=== PATIENT | male | born 1955 | race Caucasian/White ===

== ENCOUNTER 2019-07-17 15:10 | Inpatient (IN) | payer MEDICARE, OTHER ==
[~2019-07-17] VITALS: Ht 177.8 cm; Wt 68.0 kg
[2019-07-17 18:56] LABS: BASOPHILS % 0.1 % (0.0-1.0); HEMATOCRIT 41.1 % (38.2-49.6); HEMOGLOBIN 12.8 g/dL (14.0-18.0); LYMPHOCYTES % 4.5 % (18.0-39.1); MEAN CORPUSCULAR HEMOGLOBIN 27.5 pg (28-32); MEAN CORPUSCULAR HGB CONC 31.1 g/dL (31-35); MEAN CORPUSCULAR VOLUME 88.2 fL (81-99); MONOCYTES % 4.9 % (4.4-11.3); NEUTROPHILS % 89.7 % (38.7-80.0); PLATELET COUNT 350 x10e3/uL (140-360); RED BLOOD COUNT 4.66 x10e6/uL (4.3-5.7); RED CELL DISTRIBUTION WIDTH 15.2 % (11.7-14.4)
[2019-07-17 18:57] LABS: BILIRUBIN,URINE NEGATIVE (NEGATIVE); CLARITY,URINE SL CLOUDY (CLEAR); COLOR,URINE YELLOW (YELLOW); KETONES,URINE NEGATIVE (NEGATIVE); LEUKOCYTE ESTERASE ,URINE LARGE (NEGATIVE); NITRITE,URINE NEGATIVE (NEGATIVE); PROTEIN,URINE DIPSTICK TRACE (NEGATIVE); URINE UROBILINOGEN 1 mg/dL (0.2 - 1)
[2019-07-17 19:11] LABS: BACTERIA,URINE MANY /HPF; EPITHELIAL CELLS,URINE MODERATE /LPF
[2019-07-17 19:12] LABS: ALANINE AMINOTRANSFERASE 36 IU/L (0-55); ALBUMIN/GLOBULIN RATIO 0.7 (0.8-2.0); ALKALINE PHOSPHATASE 463 IU/L (40-150); ANION GAP 19.9 mmol/L (8-16); BLOOD UREA NITROGEN 19 mg/dL (7-26); BUN/CREATININE RATIO 20 (6-25); CALCIUM 10.7 mg/dL (8.4-10.2); CARBON DIOXIDE 31 mmol/L (22-29); CHLORIDE 88 mmol/L (98-107); CREATININE, SERUM 0.95 mg/dL (0.72-1.25); EST GLOMERULAR FILTRATION RATE > 60 ML/MIN (60-); GLUCOSE 91 mg/dL (74-118); POTASSIUM 3.9 mmol/L (3.5-5.1); SODIUM 135 mmol/L (136-145)
[2019-07-17] MEDS ORDERED: CEFTRIAXONE SOD 1 GM/NS 50 ML 50 ML IV ONE (19:30)
[2019-07-17] MEDS ORDERED: ONDANSETRON HCL INJ 2MG/ML 2ML 2 MG/ML VIAL IV PRN (19:45)
--- OUTSIDE RECORDS SUMMARY | 2019-07-17 19:52 | XMS REPORT | Encounter Summary ---
Author Organization Unknown Address [address] [place] [id number] Phone [phone] Care Team Providers Care Medical Lab Director Name Role Phone Dr. Cirilo Pickering 3 [phone] Reason for Visit Transient cerebral ischemia; Coronary artery bypass grafts x 3; Percutaneous transluminal coronary angioplasty Instructions 1. Body mass index 25-29 - overweight learning about healthy weight 2. Screening for disorder 3. Benign prostatic hypertrophy with outflow obstruction urology referral tamsulosin 0.4 mg capsule 4. Pain in lower limb US, duplex, venous, lower extremity - STAT Not taking eliquis x 2 weeks + , chf , [place] lower extremity edema 5. Hypertensive heart disease with congestive heart failure Lasix 40 mg tablet potassium chloride ER 10 mEq tablet,extended release 6. Coronary arteriosclerosis in [place] artery 7. Severe chronic obstructive pulmonary disease Discussion Note f/u in 1 week Plan of Care Reminders Provider Appointments Est Patient 03/15/2019 10:30AM Cirilo Pickering MD Lab None recorded. Referral Urology Referral 03/08/2019 Vasile Dao MD Procedures None recorded. Surgeries None recorded. Imaging US, Duplex, Venous, Lower Extremity 03/08/2019 [facility] Medications Name Start Date aspirin 81 mg po bi weekly furosemide 20 mg tablet Take 1 tablet every day by oral route in the morning for 10 days. Klor-Con 8 mEq tablet,extended release Take 1 tablet every 72 hours by oral route. Lasix 40 mg tablet Take 1 tablet every day by oral route in the morning for 30 days. potassium chloride ER 10 mEq tablet,extended release Take 1 tablet every day by oral route for 30 days. tamsulosin 0.4 mg capsule Take 1 capsule every day by oral route for 90 days. Trelegy Ellipta 100 mcg-62.5 mcg-25 mcg powder for inhalation Inhale 1 puff every day by inhalation route for 90 days. Ventolin HFA 90 mcg/actuation aerosol inhaler Inhale 2 puffs 4 times a day by inhalation route as needed for 90 days. Xarelto 20 mg tablet Take 1 tablet every day by oral route. Medications Administered None recorded. Vitals Height Weight BMI Blood Pressure 5 ft 11 in 190.2 lbs 26.5 kg/m2 122/76 mm[Hg] Lab Results Date Name Specimen Result Interpretation Description Value Range Status Address 03/02/2019 Spirometry Testing Spirometry: PRE [facility] ([facility]) [place]: [address] [place] [address] Fev1: [facility] ([facility]) [place]: [address] [place] [address] Fvc: [facility] ([facility]) [place]: [address] [place] [address] Restriction: [facility] ([facility]) [place]: [address] [place] [address] Obstruction: VERY SEVERE (FEV1 <30% of predicted or <50 with Cor Pulmonale) [facility] ([facility]) [place]: [address] [place] [address] Notes: [facility] ([facility]) [place]: [address] [place] [address] 03/01/2019 CBC W/ Auto Diff High Wbc 9.65 x10*3/L 4.23-9.07 x10*3/L Final [facility]: [address] Rbc 4.81 10*12/L 4.63-6.08 10*12/L Final [facility]: [address] [place] [address] Hemoglobin 13.80 g/dL 13.70-17.50 g/dL Final [facility]: [address] [place] [address] Hematocrit 42.8 % 40.1-51.0 % Final [facility]: [address] [place] [address] Mcv 89.0 fL 80.0-100.0 fL Final [facility]: [address] [place] [address] Mch 28.7 pg 25.7-32.2 pg Final [facility]: [address] [place] [address] Low Mchc 32.2 g/dL 32.3-36.5 g/dL Final [facility]: [address] [place] [address] High RDW-SD 44.3 fL 35.1-43.9 fL Final [facility]: [address] [place] [address] [place] Platelet Count 222.0 k/uL 163.0-337.0 k/uL Final [facility]: [address] [place] [address] [place] Mpv 10.6 fL 7.5-11.5 fL Final [facility]: [address] [place] [address] [place] High Neut% 77.2 % 34.0-67.9 % Final [facility]: [address] [place] [address] [place] Low Lymph% 11.7 % 21.8-53.1 % Final [facility]: [address] [place] [address] [place] Mon% 8.4 % 5.3-12.2 % Final [facility]: [address] [place] [address] [place] Eos% 2.4 % 0.8-7.0 % Final [facility]: [address] [place] [address] [place] Baso% 0.3 % 0.2-1.2 % Final [facility]: [address] [place] [address] [place] High Neut# 7.5 x10*3/L 1.8-5.4 x10*3/L Final [facility]: [address] [place] [address] [place] Low Lymph# 1.1 x10*3/L 1.3-3.6 x10*3/L Final [facility]: [address] [place] [address] [place] Mon# 0.8 x10*3/L 0.3-0.8 x10*3/L Final [facility]: [address] [place] [address] [place] Eos# 0.23 x10*3/L 0.04-0.54 x10*3/L Final [facility]: [address] [place] [address] [place] Baso# 0.03 x10*3/L 0.01-0.08 x10*3/L Final [facility]: [address] [place] [address] [place] 03/01/2019 CMP, Serum or Plasma Alt 13 U/L 0-55 U/L Final [facility]: [address] [facility] Ast 15 U/L 5-34 U/L Final [facility] [address] [facility] Bun 12.1 mg/dL 8.4-25.0 mg/dL Final [facility]: [address] [place] [address], [place] Alk Phos 144 unit/L 40-150 unit/L Final [facility]: [address] [place] [address], [place] Glucose 92 mg/dL 70-99 mg/dL Final [facility]: [address] [place] [address] [place], [place] Albumin 3.9 g/dL 3.4-5.1 g/dL Final [facility]: [address] [place] [address], [place] Creatinine 1.03 mg/dL 0.72-1.25 mg/dL Final [facility]: [address] [facility] eGFR Non- >60 mL/min/1.73m2 Final [facility]: [address] [facility] High Total Bilirubin 1.3 mg/dL 0.2-1.2 mg/dL Final [facility]: [address] [place] [address] eGFR - >60 mL/min/1.73m2 Final [facility]: [address] [facility] Low Sodium 134 mEq/L 135-145 mEq/L Final [facility]: [address] [place] [address] Potassium 4.5 mEq/L 3.5-5.1 mEq/L Final [facility]: [address] [facility] Low Chloride 97 mmol/L 98-110 mmol/L Final [facility]: [address] [facility] Total Protein 6.7 g/dL 6.1-8.2 g/dL Final [facility]: [address] [facility] Calcium 10.0 mg/dL 9.0-10.2 mg/dL Final [facility]: [address] [place] [address] [facility] Co2 25.2 mmol/L 20.0-32.0 mmol/L Final [facility]: [address] [facility] Anion Gap 12 calc Final [facility]: [address] [facility] 03/01/2019 Lipid Panel, Serum Low Hdl 35 mg/dL 40-0 mg/dL Final [facility]: [address] [place] [address] Triglyceride 99 mg/dL 0-150 mg/dL Final [facility]: [address] [place] [address] VLDL (Calculated) 20 mg/dL Final [facility]: [address] [place] [address] cholesterol/HDL Ratio 3.8 mg/dL Final [facility]: [address] [place] [address] non-HDL Cholesterol (Calculated) 98 mg/dL 0-160 mg/dL Final [facility]: [address] Cholesterol 133 mg/dL 0-200 mg/dL Final [facility]: [address] LDL (Calculated) 78 mg/dL 0-130 mg/dL Final [facility]: [address] [place] [address], [place] 03/01/2019 TSH, Serum or Plasma Tsh 0.815 uIU/mL 0.350-4.940 uIU/mL Final [facility]: [facility] [place] [address] 03/01/2019 HbA1C (Hemoglobin a1C), Blood High A1C W/eag 6.1 % 1.0-5.7 % Final [facility]: [address] Average Blood Glucose 128 mg/dL Final [facility]: [address] [place] [address], [place] 03/01/2019 Urinalysis, Dipstick Color Color dark yellow [facility] ([facility]) [place]: [address] [place] Color Appearance clear [facility] ([facility]) [place]: [address] [place] Color Glucose negative [facility] (p) [place]: [address] [place] Color Bilirubin negative [facility] (p) [place]: [address] [place] Color Ketones negative [facility] (p) [place]: [address] [place] Color Specific [place] 1.020 [facility] (p) [place]: [address] [place] Color Blood negative [facility] (p) [place]: [address] [place] Color PH 5.5 [facility] ([facility]) [place]: [address] [place] Color Protein negative [facility] ([facility]) [place]: [address] [facility], [place] Color Urobilinogen 0.2 [facility] ([facility]) [place]: [address] [place] Color Nitrites negative [facility] ([facility]) [place]: [address] [place] Color Leukocytes negative [facility] ([facility]) [place]: [address] [facility] Allergies Code Code System Name Reaction Severity Status Onset 2582 RxNorm Clindamycin Rash Active Problems Name Status Onset Date Source Transient Cerebral Ischemia Active 03/01/2019 Coronary Artery Bypass Grafts X 3 Active 03/01/2019 Percutaneous Transluminal Coronary Angioplasty Active 03/01/2019 Procedures Date Name Performed by 09/20/2009 Cardiac Surgery Information not available 09/20/1994 Angioplasty Information not available Tonsillectomy Information not available 03/01/2019 XR, Chest, 2 View [facility] [place] [address] [place], [place] [id number] (Work Place) 03/08/2019 US, Duplex, Venous, Lower Extremity [facility] [place] [address] [place], [place] [id number] (Work Place) Vaccine List Vaccine Type pneumococcal polysaccharide PPV23 03/01/20190.5 mL Td(adult) unspecified formulation 09/20/1999 Tdap 03/01/20190.5 mL Social History Smoking Status Heavy Tobacco Smoker (1 PPD) Past Encounters 03/08/2019 Body Mass Index 25-29 - Overweight; Screening for Disorder; Benign Prostatic Hypertrophy with Outflow Obstruction; Pain in Lower Limb; Hypertensive Heart Disease with Congestive Heart Failure; Coronary Arteriosclerosis in [place] Artery; Severe Chronic Obstructive Pulmonary Disease Cirilo Pickering MD: [address] [place] [address], [place] [address], Ph. 03/01/2019 Body Mass Index 25-29 - Overweight; Depression Screening Positive; Nicotine Dependence; Coronary Arteriosclerosis in [place] Artery; Severe Chronic Obstructive Pulmonary Disease; Senile Purpura; Edema of Lower Extremity; Adult Health Examination; Immunization; Noncompliance with Treatment; Screening for Malignant Neoplasm of Colon Cirilo Pickering MD: [address] [place] [address], Ph. History of Present Illness Note:C/o pain in Lt thigh x 2 week , no h/o trauma , Takes xarelto ?? 2 weeks ago . pain when he toucheds, SITS IN [facility]CL[facility]ER 6-8 HRS & THINKS IT may be causing apin & fluid build up , no fever ro chills. pervpt he has other meds he is taking ( never mentioned any when i asked a few times if he is taking any bijan with heart failure ) Review of Systems:ROS as noted in the HPI Review of Systems None recorded. Physical Exam General Adult Exam (Female) Reported By: Patient Constitutional: General Appearance: well-developed; Sob with activity & moving - mild. Level of Distress: moderate distress. Ambulation: ambulating normally Psychiatric: Insight: good judgement. Mental Status: active and alert, normal mood, normal affect. Orientation: to time, to place, to person Head: Head: normocephalic, atraumatic Eyes: Lids and Conjunctivae: non-injected, no discharge, no pallor. Pupils: PERRLA. Corneas: grossly intact. EOM: EOMI. Lens: clear. Sclerae: non-icteric ENMT: Ears: no lesions on external ear, EACs clear, TMs clear. Hearing: no hearing loss. Nose: no lesions on external nose, nares patent, no septal deviation, nasal passages clear, no sinus tenderness, no nasal discharge. Lips, Teeth, and Gums: no mouth or lip ulcers, no bleeding gums, normal dentition. Oropharynx: moist mucous membranes, no erythema, no exudates, tonsils not enlarged Neck: Neck: supple, trachea midline, no masses, FROM. Lymph Nodes: no cervical LAD, no supraclavicular LAD, no axillary LAD. Thyroid: no enlargement, non- tender, no nodules Lungs: Respiratory effort: no dyspnea. Auscultation: breath sounds normal, good air movement, CTA except as noted, no wheezing, no rales/crackles, no rhonchi Cardiovascular: Heart Auscultation: RRR, normal S1, normal S2, no murmurs, no rubs, no gallops Abdomen: Bowel Sounds: normal. Inspection and Palpation: soft, non-distended, no tenderness, no guarding, no rebound tenderness, no masses, no CVA tenderness. Liver: non-tender, no hepatomegaly Musculoskeletal:: Motor Strength and Tone: normal motor strength, normal tone. Joints, Bones, and Muscles: normal movement of all extremities, no bony abnormalities, no contractures, no malalignment, no tenderness. Extremities: no cyanosis, no varicosities; 2 + edema in [place] lower extremities , discomofrt to palpation f Lt medial thigh , no cord palpable . no erythema Neurologic: Gait and Station: normal gait, normal station. Cranial Nerves: grossly intact. Sensation: grossly intact Skin: Inspection and palpation: no rash, no lesions, no abnormal nevi, good turgor, no jaundice. Nails: normal Back: Thoracolumbar Appearance: normal curvature
--- OUTSIDE RECORDS SUMMARY | 2019-07-17 19:52 | XMS REPORT | Encounter Summary ---
Author Organization Unknown Address [address] [place] [address] Phone [phone] Care Team Providers Care Sheet Rock Installation Helper Name Role Phone Dr. Cirilo Pickering 3 [phone] Reason for Visit other - see typed reason Instructions 1. Body mass index 25-29 - overweight learning about healthy weight 2. Benign hypertensive heart disease without congestive heart failure Lasix 40 mg tablet BMP, serum or plasma 3. Benign prostatic hypertrophy with outflow obstruction 4. Edema of lower leg 5. Severe chronic obstructive pulmonary disease Discussion Note Record weights if possible Encouraged to get the Flu vaccine in 1-2nd week Jun 2019 f/u in 10 days Plan of Care Reminders Provider Appointments Nurse Visit 03/21/2019 1:30PM Nurse [place] Serge Patient 03/29/2019 2:00PM Cirilo Pickering MD Lab BMP, Serum or Plasma 03/21/2019 [facility] Referral None recorded. Procedures None recorded. Surgeries None recorded. Imaging None recorded. Medications Name Start Date Lasix 40 mg tablet Take 1 tablet twice a day by oral route in the morning for 90 days. take a potassium pill along with lasix potassium chloride ER 10 mEq tablet,extended release [...] BMI Blood Pressure 5 ft 11 in 187 lbs 26.1 kg/m2 110/70 mm[Hg] Lab Results Date Name Specimen Result Interpretation Description Value Range Status Address 03/07/2019 Fecal Occult Blood, Stool Fecal Globin by Immunochemistry not detected Final [facility]: [address] [place] 03/02/2019 Spirometry Testing Spirometry: PRE [facility] ([facility]) [place]: [address] [place] [address] Fev1: [facility] ([facility]) [place]: [address] [place] [address] Fvc: [facility] ([facility]) [place]: [address] [place] [address] Restriction: [facility] ([facility]) [place]: [address] [place] [address] Obstruction: VERY SEVERE (FEV1 <30% of predicted or <50 with Cor Pulmonale) [facility] ([facility]) [place]: [address] [place] [address] Notes: [facility] ([facility]) [place]: [address] [place] [address] 03/01/2019 CBC W/ Auto Diff High Wbc 9.65 x10*3/L 4.23-9.07 x10*3/L Final [facility]: [address] Rbc 4.81 10*12/L 4.63-6.08 10*12/L Final [facility]: [address] Hemoglobin 13.80 g/dL 13.70-17.50 g/dL Final [facility]: [address] Hematocrit 42.8 % 40.1-51.0 % Final [facility]: [address] Mcv 89.0 fL 80.0-100.0 fL Final [facility]: [address] Mch 28.7 pg 25.7-32.2 pg Final [facility]: [address] Low Mchc 32.2 g/dL 32.3-36.5 g/dL Final [facility]: [address] [facility] High RDW-SD 44.3 fL 35.1-43.9 fL Final [facility]: [address] [place] [address] Platelet Count 222.0 k/uL 163.0-337.0 k/uL Final [facility]: [address] Mpv 10.6 fL 7.5-11.5 fL Final [facility]: [address] [place] High Neut% 77.2 % 34.0-67.9 % Final [facility]: [address] [place] Low Lymph% 11.7 % 21.8-53.1 % Final [facility]: [address] [place] Mon% 8.4 % 5.3-12.2 % Final [facility]: [address] [place] Eos% 2.4 % 0.8-7.0 % Final [facility]: [address] [place] Baso% 0.3 % 0.2-1.2 % Final [facility]: [address] [place] High Neut# 7.5 x10*3/L 1.8-5.4 x10*3/L Final [facility]: [address] [place] Low Lymph# 1.1 x10*3/L 1.3-3.6 x10*3/L Final [facility]: [address] [place] Mon# 0.8 x10*3/L 0.3-0.8 x10*3/L Final [facility]: [address] [place] Eos# 0.23 x10*3/L 0.04-0.54 x10*3/L Final [facility]: [address] [place] Baso# 0.03 x10*3/L 0.01-0.08 x10*3/L Final [facility]: [address] [place] 03/01/2019 CMP, Serum or Plasma Alt 13 U/L 0-55 U/L Final [facility]: [address] [facility] Ast 15 U/L 5-34 U/L Final [facility]: [address] [facility] Bun 12.1 mg/dL 8.4-25.0 mg/dL Final [facility]: [address] [facility] Alk Phos 144 unit/L 40-150 unit/L Final [facility]: [address], [place] Glucose 92 mg/dL 70-99 mg/dL Final [facility]: [address], [place] Albumin 3.9 g/dL 3.4-5.1 g/dL Final [facility]: [address], [place] Creatinine 1.03 mg/dL 0.72-1.25 mg/dL Final [facility]: [address], [place] eGFR Non- >60 mL/min/1.73m2 Final [facility]: [address], [place] High Total Bilirubin 1.3 mg/dL 0.2-1.2 mg/dL Final [facility]: [address] [place] [address] eGFR - >60 mL/min/1.73m2 Final [facility]: [address], [place] Low Sodium 134 mEq/L 135-145 mEq/L Final [facility]: [address] Potassium 4.5 mEq/L 3.5-5.1 mEq/L Final [facility]: [address] [place] [address] Low Chloride 97 mmol/L 98-110 mmol/L Final [facility]: [address] Total Protein 6.7 g/dL 6.1-8.2 g/dL Final [facility]: [address] [facility] Calcium 10.0 mg/dL 9.0-10.2 mg/dL Final [facility]: [address] Co2 25.2 mmol/L 20.0-32.0 mmol/L Final [facility]: [address] Anion Gap 12 calc Final [facility]: [address], [place] 03/01/2019 Lipid Panel, Serum Low Hdl 35 mg/dL 40-0 mg/dL Final [facility]: [address] [place] [address], [place] Triglyceride 99 mg/dL 0-150 mg/dL Final [facility]: [address] VLDL (Calculated) 20 mg/dL Final [facility]: [address] cholesterol/HDL Ratio 3.8 mg/dL Final [facility]: [address] non-HDL Cholesterol (Calculated) 98 mg/dL 0-160 mg/dL Final [facility]: [address] Cholesterol 133 mg/dL 0-200 mg/dL Final [facility]: [address] LDL (Calculated) 78 mg/dL 0-130 mg/dL Final [facility]: [address] [place] [address] 03/01/2019 TSH, Serum or Plasma Tsh 0.815 uIU/mL 0.350-4.940 uIU/mL Final [facility]: [address] [place] [address], [place] 03/01/2019 HbA1C (Hemoglobin a1C), Blood High A1C W/eag 6.1 % 1.0-5.7 % Final [facility]: [address] [place] [address] Average Blood Glucose 128 mg/dL Final [facility]: [address] [place] [address], [place] 03/01/2019 Urinalysis, Dipstick Color Color dark yellow [facility] (p) [place]: [address] [place] Color Appearance clear [facility] ([facility]) [place]: [address] [place] Color Glucose negative [facility] (p) [place]: [address] [place] Color Bilirubin negative [facility] (p) [place]: [address] [place] Color Ketones negative [facility] (p) [place]: [address] [place] Color Specific Cuttyhunk 1.020 [facility] (Vfp) [place]: [address] [place] Color Blood negative [facility] ([facility]) [place]: [address] [place] Color PH 5.5 [facility] (p) [place]: [address] [place] Color Protein negative [facility] ([facility]) [place]: [address] [place] Color Urobilinogen 0.2 [facility] ([facility]) [place]: [address] [place] Color Nitrites negative [facility] ([facility]) [place]: [address] [place] Color Leukocytes negative [facility] ([facility]) [place]: [address] [facility] Allergies Code Code System Name Reaction Severity Status Onset 2582 RxNorm Clindamycin Rash Active Problems Name Status Onset Date Source Transient Cerebral Ischemia Active 03/01/2019 Coronary Artery Bypass Grafts X 3 Active 03/01/2019 Percutaneous Transluminal Coronary Angioplasty Active 03/01/2019 Benign Hypertensive Heart Disease without Congestive Heart Failure Active 03/18/2019 Severe Chronic Obstructive Pulmonary Disease Active 03/18/2019 Benign Prostatic Hypertrophy with Outflow Obstruction Active 03/18/2019 Edema of Lower Leg Active 03/18/2019 Procedures Date Name Performed by 09/20/2009 Cardiac Surgery Information not available 09/20/1994 Angioplasty Information not available Catheter, Ureteral Information not available Tonsillectomy Information not available 03/01/2019 XR, Chest, 2 View [facility] [place] [address] [place], [place] [id number] (Work Place) 03/08/2019 US, Duplex, Venous, Lower Extremity [facility] [place] [address] [place] [address] (Work Place) Vaccine List Vaccine Type pneumococcal polysaccharide PPV23 03/01/20190.5 mL Td(adult) unspecified formulation 09/20/1999 Tdap 03/01/20190.5 mL Social History Smoking Status Heavy Tobacco Smoker (1 PPD) Past Encounters 03/15/2019 Body Mass Index 25-29 - Overweight; Benign Hypertensive Heart Disease without Congestive Heart Failure; Benign Prostatic Hypertrophy with Outflow Obstruction; Edema of Lower Leg; Severe Chronic Obstructive Pulmonary Disease Cirilo Pickering MD: [address] [place] [phone], Ph. 03/08/2019 Body Mass Index 25-29 - Overweight; Screening for Disorder; Benign Prostatic Hypertrophy with Outflow Obstruction; Pain in Lower Limb; Hypertensive Heart Disease with Congestive Heart Failure; Coronary Arteriosclerosis in [place] Artery; Severe Chronic Obstructive Pulmonary Disease Cirilo Pickering MD: [address] [place] [phone], Ph. 03/01/2019 Body Mass Index 25-29 - Overweight; Depression Screening Positive; Nicotine Dependence; Coronary Arteriosclerosis in [place] Artery; Severe Chronic Obstructive Pulmonary Disease; Senile Purpura; Edema of Lower Extremity; Adult Health Examination; Immunization; Noncompliance with Treatment; Screening for Malignant Neoplasm of Colon Cirilo Pickering MD: [address] [place] [address], Ph. History of Present Illness Note:here to f/u on CHF/ Ivan[place] pedal edema & difficulty voiding , Saw urologu last week & they placed a bradford cath in place . perpt voiding better & a lot now , No chest pain , no shortness of breath, no palpitations ,no dizziness , no diaphoresis , no weakness or numbness in arms or legs , no visual loss . Edema decreased but not much in lower extremities, feels he s breathing easier since using Trelegy , noytt ready to quit smoking Review of Systems:ROS as noted in the HPI Review of Systems None recorded. Physical Exam General Adult Exam (Female) Reported By: Patient Constitutional: General Appearance: well-developed; bmi - 26.1 ( 3 lb wt loss in 1 week). Level of Distress: NAD. Ambulation: ambulating normally Psychiatric: Insight: poor insight. Mental Status: active and alert, normal mood, [...] no tenderness. Extremities: no cyanosis, no varicosities; ivania pedal edema 2up to knees Neurologic: Gait and Station: normal gait, normal station. Cranial Nerves: grossly intact. Sensation: grossly intact Skin: Inspection and palpation: no rash, no lesions, no abnormal nevi, good turgor, no jaundice. Nails: normal Back: Thoracolumbar Appearance: normal curvature Notes: very strong tobacco odor emanating from pt & so difficult to breathe in room
--- OUTSIDE RECORDS SUMMARY | 2019-07-17 19:52 | XMS REPORT | Encounter Summary ---
Author Organization Unknown Address [address] [place] [address] Phone [phone] Care Team Providers Care Chief Of Harbor Patrol Name Role Phone Dr. Cirilo Pickering 3 [phone] Reason for Visit asthma; other - see typed reason; swelling/edema; Tobacco Cessation Counseling Instructions 1. Body mass index 25-29 - overweight learning about healthy weight 2. Depression screening positive learning about mood disorders 3. Nicotine dependence stopping smoking: care instructions advised to quit smoking deciding about using medicines to quit smoking 4. Coronary arteriosclerosis in [place] artery 5. Severe chronic obstructive pulmonary disease spirometry testing XR, chest, 2 view - PLEASE CALL PATIENT Arjun Ellipta 100 mcg-62.5 mcg-25 mcg powder for inhalation Ventolin HFA 90 mcg/actuation aerosol inhaler 6. Senile purpura 7. Edema of lower extremity Lasix 20 mg tablet 8. Adult health examination CBC w/ auto diff CMP, serum or plasma urinalysis, dipstick HbA1c (hemoglobin A1c), blood lipid panel, serum TSH, serum or plasma 9. Immunization Adacel (Tdap Adolesn/Adult)(PF)2 Lf-(2.5-5-3-5)-5 Lf/0.5 mL IM syringe Pneumovax 23 25 mcg/0.5 mL injection syringe 10. Noncompliance with treatment 11. Screening for malignant neoplasm of colon fecal occult blood, stool Discussion Note F/u in 1 week Record daily weights & bring to office Plan of Care Patient Instructions Quitting Tobacco Goals Quitting smoking is important for your health, but it is hard to do. We agreed to the following goals towards reducing your tobacco habits: Today we talked about how you are not thinking about quitting smoking. Since you want to smoke less, but are not ready to quit yet, we agreed that by your next appointment, you would smoke one less cigarette each day. Since your ready to quit smoking, we agreed that you would smoke your last cigarette on . Policy Writer Goals: *Permanently quit smoking *Improve lung function *Reduce my risk of getting emphysema, cancer and heart disease What can increase my chances of success for quitting smoking? *Regular exercise *Chew gum or hard candy *Identify triggers that lead to smoking, and establish new strategies for coping with these situations *Keep yourself busy *Contact additional resources for support, such as [employer] *Don't give up, even if you have a setback How can my healthcare team support me in quitting smoking? *Follow up visits to assess progress *Identify resources available to help you quit smoking *Consider medication to increase your chances of successfully quitting smoking *Referral to counseling for additional support Reminders Provider Appointments Est Patient 03/08/2019 10:30AM Cirilo Pickering MD Est Patient on or around 03/08/2019 Cirilo Pickering MD Lab CBC W/ Auto Diff 03/01/2019 [facility] CMP, Serum or Plasma 03/01/2019 [facility] Urinalysis, Dipstick 03/01/2019 [facility] ([facility] HbA1C (Hemoglobin a1C), Blood 03/01/2019 [facility] Lipid Panel, Serum 03/01/2019 [facility] TSH, Serum or Plasma 03/01/2019 [facility] Fecal Occult Blood, Stool 03/01/2019 [facility] Referral None recorded. Procedures None recorded. Surgeries None recorded. Imaging XR, Chest, 2 View 03/01/2019 [facility] Medications Name Start Date aspirin 81 mg po bi weekly Lasix 20 mg tablet Take 1 tablet every day by oral route in the morning for 10 days. Trelegy Ellipta 100 mcg-62.5 mcg-25 mcg powder for inhalation Inhale 1 puff every day by inhalation route for 90 days. Ventolin HFA 90 mcg/actuation aerosol inhaler Inhale 2 puffs 4 times a day by inhalation route as needed for 90 days. Medications Administered None recorded. Vitals Height Weight BMI Blood Pressure 5 ft 11 in 189.8 lbs 26.5 kg/m2 120/74 mm[Hg] Lab Results Date Name Specimen Result Interpretation Description Value Range Status Address 03/02/2019 Spirometry Testing Spirometry: PRE [facility] ([facility]) [place]: [address] [facility] Fev1: [facility] ([facility]) [place]: [address] [place] [address] Fvc: [facility] ([facility]) [place]: [address] [place] [address] Restriction: [facility] ([facility]) [place]: [address] [place] [address] Obstruction: VERY SEVERE (FEV1 <30% of predicted or <50 with Cor Pulmonale) [facility] ([facility]) [place]: [address] [place] [address] Notes: [facility] ([facility]) [place]: [address] [place] [address] Allergies Code Code System Name Reaction Severity [...] not available 03/01/2019 XR, Chest, 2 View [facility] [place] [address] [place], [place] [id number] (Work Place) Vaccine List Vaccine Type pneumococcal polysaccharide PPV23 03/01/20190.5 mL Td(adult) unspecified formulation 09/20/1999 Tdap 03/01/20190.5 mL Social History Smoking Status Heavy Tobacco Smoker (1 PPD) Past Encounters 03/01/2019 Body Mass Index 25-29 - Overweight; Depression Screening Positive; Nicotine Dependence; Coronary Arteriosclerosis in [place] Artery; Severe Chronic Obstructive Pulmonary Disease; Senile Purpura; Edema of Lower Extremity; Adult Health Examination; Immunization; Noncompliance with Treatment; Screening for Malignant Neoplasm of Colon Cirilo Pickering MD: [address] [place] [phone], Ph. History of Present Illness Note:Here because his Legs are swollen x 2 weeks .Legs are tight & makes it difficulty to walk .Also for a physical. No chest pain , no shortness of breath, no palpitations ,no dizziness , no diaphoresis , no weakness or numbness in arms or legs , no visual loss . .Does not take any meds although he has had Cardiac stents & CABG done. Uses only the Ventolin 5-6 x/ day , not ready to quit or cut down on smoking <div></div> Review of Systems:ROS as noted in the HPI Review of Systems None recorded. Physical Exam General Adult Exam (Female) Reported By: Patient Constitutional: General Appearance: well-developed; bmi - 26.5Looks older than stated age. Level of Distress: mild distress. Ambulation: ambulating normally Psychiatric: Insight: poor insight. [...] malalignment, no tenderness. Extremities: no cyanosis, no varicosities, edema Neurologic: Gait and Station: normal gait, normal station. Cranial Nerves: grossly intact. Sensation: grossly intact Skin: Inspection and palpation: no rash, no lesions, no abnormal nevi, good turgor, no jaundice; ivania forearms with few exxhymotic spots. Nails: normal Back: Thoracolumbar Appearance: normal curvature Notes: Alert, oriented x 3 , Cranial nerves 2-12 intact , Strength 5/5 in all 4 extremities , Gait - Normal , Speech - normal, Visual burt - Intact , Sensations - intact in all 4 extremities, DTR's - 2 + in all 4 extremities , No tremors, cerebellar signs intact , straight line walking test & finger nose test - normal, [place]- Negative
--- OUTSIDE RECORDS SUMMARY | 2019-07-17 19:52 | XMS REPORT ---
Author Author [facility] Address Unknown Phone Unavailable Care Team Providers Care Echo Technologist Name Role Phone Unavailable Unavailable Payers Payer Name Policy Type Policy Number Effective Date Expiration Date Problems This patient has no known problems. Allergies, Adverse Reactions, Alerts Allergy Name Allergy Type Status Severity Reaction(s) Onset Date Inactive Date Treating Clinician Comments No Known Allergies DA Active 2019-06-08 00:00:00 clindamycin DA Active VT 2019-06-08 00:00:00 clindamycin DA Active VT 2019-03-31 00:00:00 No Known Allergies DA Active U 2019-03-29 00:00:00 No Known Allergies DA Active 2018-02-16 00:00:00 Medications This patient has no known medications. Results Test Description Test Time Test Comments Text Results Atomic Results Result Comments COMPREHENSIVE METABOLIC PANEL 2019-06-16 07:39:00 SODIUM (test code=NA) 137 mmol/L 136-145 POTASSIUM (test code=K) 3.7 mmol/L 3.5-5.1 CHLORIDE (test code=CL) 87.0 mmol/L 98-107 CARBON DIOXIDE (test code=CO2) 47.0 mmol/L 21-32 ANION GAP (test code=GAP) 6.7 10-20 GLUCOSE (test code=GLU) 190 mg/dL 74-106 BLOOD UREA NITROGEN (test code=BUN) 42 mg/dL 7-18 GLOMERULAR FILTRATION RATE (test code=GFR) > 60 mL/min >=60 Estimated GFR by using Modified MDRD formula.Chronic kidney disease is defined as either kidney damageor GFR <60 mL/min/1.73 m2 for >3 months. CREATININE (test code=CREAT) 1.00 mg/dL 0.7-1.3 BUN/CREATININE RATIO (test code=BUN/CREA) 40.4 10-20 TOTAL PROTEIN (test code=PROT) 5.8 gram/dL 6.4-8.2 ALBUMIN (test code=ALB) 2.5 g/dL 3.4-5.0 GLOBULIN (test code=GLOB) 3.3 gram/dL 2.7-4.2 ALBUMIN/GLOBULIN RATIO (test code=A/G) 0.8 0.75-1.50 CALCIUM (test code=CA) 8.6 mg/dL 8.5-10.1 BILIRUBIN TOTAL (test code=BILT) 0.80 mg/dL 0.0-1.0 SGOT/AST (test code=AST) 47 IUnit/L 15-37 SGPT/ALT (test code=ALT) 108 IUnit/L 12-78 ALKALINE PHOSPHATASE TOTAL (test code=ALKP) 220 IUnit/L 45-117 Note change in reference range due to change in reagent. LIVER,[id number] 15:34:00 RUN DATE: 06/15/19 [facility] PAGE 1 RUN TIME: 1534 Specimen Inqui ry RUN USER: INTERFACE PATIENT: PATSY BECERRA ACCT #: V [id number] LOC: MIKE U #: [id number] AGE/SX: 64/M ROOM: [facility] RE06/11/19REG DR: Donnie Bond MD : 55 BED: A DIS: STATUS: ADM IN TLOC: SPEC #: [id number] RECD: 06/13/19 STATUS: TEJAS RE #: [id number] SHARMILA: 06/13/19 [facility] DR: New Humphrey MD ENTERED: 06/13/19 SP TYPE: BX LIVER OTHR DR: Jayy Rios i, MD, Ming K MD Quraishi, Mohammed A MD Shahar, Julio MD T [facility] REGISTRY Abby Rangel NPORDERED: GROSS COPIES TO: Jayy Disla MD [address] [place], [place] [address] Hosea Mcgrath MD [address] [place], [place] [address] New Humphrey MD [address] [place] [address] Yusef Rodriguez MD [address] Fiorella [place], [facility]504 Fabricio Hobbs MD [address] [place], [place] [id number] TUMOR REGISTRY Leslie Rangel SHOE PACKER [address] [facility], [place] [address] MARKERS: INTRADEPARTMENTAL CONSULT, MALIGNANCY PROCEDURES: GROSS (06/15/19-1207) CONTINUED ON NEXT PAGE RUN DATE: 06/15/19 [facility] PAGE 2 RUN TIME: 1534 Specimen Inquiry RUN USER: INTERFACE SPEC #: [id number] PATIENT: PATSY BECERRA #[id number] (Continued)-- TISSUES: LIVER, NOS - BX 4 SLIDES CLINICAL HISTORY COLLECTION DATE: 06/13/2019 HISTORY OF LIVER MASS POST-OP DIAGNOSIS: ? HEPATIC METS COMMENT Sections from the biopsy specimen show hep atic parenchyma infiltrated by irregularly shaped glandular structures and tae d aggregates of tumor in a background of desmoplastic fibrosis. The malignant cells have enlarged, hyperchromatic nuclei that are round to more regular in sh ape. Occasional cells are markedly pleomorphic. Variable amounts of cytoplasm are present. Scattered cells have intermediate sized nucleoli. Scattered palmira otic figures are present. Small patchy areas of necrosis are present within th e tumor. Numerous aggregates of malignant cells are identified in the touch pr eps slides. These occur in a background of blood. Air drying artifact is pres ent but the cytologic features are similar to the tumor cells in the tissue sect ion. Paraffin embedded tissue was submitted for immunoperoxidase stains. Th e slides are reviewed at [facility]. The controls stain appropriately. The tumor cells are negative for CK5/6 but strong positivity fo r CK7 and TTF-1. Patchy mild positivity for P63 is present. Strong positivity for CK7 and TTF-1 supports the interpretation of metastatic adenocarcinoma of pulmonary origin. P63 positivity is more commonly associated with squamous dif ferentiation. However, approximately 30% of pulmonary adenocarcinomas may show some expression of P63. The paraffin embedded tissue will be submitted for AL K/EGFR studies. The initial findings were discussed with Dr. Humphrey on 06/14/2019 a t 2:00 pm. The findings after receiving the immunoperoxidase stains were discu ssed with Anjel Browning and Haley 06/15/2019. Intradepartmental consult ation: DMW. 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 Four slides are also received to be stained for cytologic evaluation. Within the container the specimen co nsists of four dark hammonds-white core biopsies that measure from 0.7 to 1.5 cm i n length by less than 0.1 cm in diameter. The specimen is entirely submitted. GROSS PERFORMED AT [facility] [address] [place] [address] (p)[phone] MICROSCOPIC All of the stains, including any controls performed, stain ap propriately. MICROSCOPIC PERFORMED AT [facility] [address] [place] [address] (p)[phone] PERFORMING SITE Diagnosis performed at: [facility], JERALD [address] [place] [address] Signed SIGNATURE ON Buck Gallego MD 06/15/19 1534 END OF REPORT LIVER,BIOPSY 2019-06-15 15:34:00 RUN DATE: 06/22/19 [facility] PAGE 1 RUN TIME: 1701 Specimen Inqui ry RUN USER: INTERFACE PATIENT: PATSY BECERRA ACCT #: V [id number] LOC: MIKE U #: [id number] AGE/SX: 64/M ROOM: [facility] RE06/11/19REG DR: Donnie Bond MD : 55 BED: A DIS: 06/16/19 STATUS: DIS IN TLOC: SPEC #: [id number] RECD: 06/13/19 STATUS: TEJAS RE #: [id number] SHARMILA: 06/13/19-[address]: New Humphrey MD ENTERED: 06/13/19-1036 SP TYPE: BX LIVER OTHR DR: Jayy Rios i, MD, Ming K MD Quraishi,Fabricio Holliday MD, MD UMAbby LutherED: GROSS COPIES TO: Jayy Disla MD [address] [place] [address] Hosea Mcgrath MD [address] [place] [address] New Humphrey MD [address] [facility] [place], [facility]504 Yusef Rodriguez MD [address] [place] [address] Fabricio Hobbs MD [address] [place] [address] TUMOR REGISTRY Juan CarlosLeslie SHOE PACKER 4000 [facility] [place], [facility]504 MARKERS: INTRADEPARTMENTAL CONSULT, MALIGNANCY PROCEDURES: KOBY (06/22/19-1700) CONTINUED ON NEXT PAGE RUN DATE: 06/22/19 [facility] PAGE 2 RUN TIME: 1701 Specimen Inquiry RUN USER: INTERFACE SPEC #: [id number] PATIENT: PATSY BECERRA #[id number] (Continued)-- TISSUES: LIVER, NOS - BX 4 SLIDES ADDENDUM FINDINGS Addendum #1 Entered: 06/22/19 Per the request of Dr. Saturnino pete, material from this case was sent to [facility] for EGFR and ALK studies. A report is received from [employer] stating testing was not performed due to insufficient tis elsie being present. Addendum Signed SIGNATURE ON FILE Buck Healy MD 06/22/191700 CLINICAL HISTORY COLLECTION ALISTAIR E: 06/13/2019 HISTORY OF LIVER MASS POST-OP DIAGNOSIS: ? HEPATIC METS COMMENT Sections from the biopsy specimen show hepatic parenchyma i nfiltrated by irregularly shaped glandular structures and solid aggregates of t umor in a background of desmoplastic fibrosis. The malignant cells have enlarg ed, hyperchromatic nuclei that are round to more regular in shape. Occasional cells are markedly pleomorphic. Variable amounts of cytoplasm are present. Sc attered cells have intermediate sized nucleoli. Scattered mitotic figures are present. Small patchy areas of necrosis are present within the tumor. Numerou s aggregates of malignant cells are identified in the touch preps slides. Thes e occur in a background of blood. Air drying artifact is present but the cytol ogic features are similar to the tumor cells in the tissue section. Paraffin embedded tissue was submitted for immunoperoxidase stains. The slides are rev iewed at [facility]. The controls stain appropriately. T he tumor cells are negative for CK5/6 but strong positivity for CK7 and TTF-1. Patchy mild positivity for P63 is present. Strong positivity for CK7 and TTF-1 supports the interpretation of metastatic adenocarcinoma of pulmonary origin. P63 positivity is more commonly associated with squamous differentiation. Ho wever, approximately 30% of pulmonary adenocarcinomas may show some expression of P63. The paraffin embedded tissue will be submitted for ALK/EGFR studies. The initial findings were discussed with Dr. Humphrey on 06/14/2019 at 2:00 pm. The f indings after receiving the immunoperoxidase stains were discussed with Anjel Arita and Haley 06/15/2019. Intradepartmental consultation: DMW. CONTINUED ON NEXT PAGE RUN DATE: [facility] PAGE 3 RUN TIME: 1701 Specimen Inquiry R UN USER: INTERFACE --- ---------SPEC #: [id number] PATIENT: PATSY BECERRA #[id number] (Continued) FINAL DIAGNOSIS Liver mass, needle biopsy and touch prep: ADENOCARCINOMA IN HEPATIC PARENCHYMA COMPATIB HALEY WITH METASTASES FROM PULMONARY PRIMARY, see comment RR B/sm D 08281, 04982, [id number] MACROSCOPIC The specimen consists of core biopsy material received in formalin, labeled with the patient's name, and identified as "liver". Four slides are also received to be stained for c ytologic evaluation. Within the container the specimen consists of four dark hammonds-white core biopsies that measure from 0.7 to 1.5 cm in length by less amarilis n 0.1 cm in diameter. The specimen is entirely submitted. GROSS PERFORM ED AT [facility] [address] [place] [address] (p)[phone] MICROSCOPIC A ll of the stains, including any controls performed, stain appropriately. M ICROSCOPIC PERFORMED AT [facility] [address] [place] [address] (p)[phone] PERFORMING S ITE Diagnosis performed at: [facility] [place] [address] [facility] [place] [address] Signed SIGNATURE ON FILE Buck Healy MD 06/15/19 1534 END OF REPORT LIVER,[id number] 15:34:00 RUN DATE: 06/30/19 [facility] PAGE 1 RUN TIME: 1401 Specimen Inqui ry RUN USER: INTERFACE PATIENT: PATSY BECERRA ACCT #: V [id number] LOC: MIKE U #: [id number] AGE/SX: 64/M ROOM: [facility] RE06/11/19REG DR: Donnie Bond MD : 55 BED: A DIS: 06/16/19 STATUS: DIS IN TLOC: SPEC #: [id number] RECD: 06/13/19 STATUS: TEJAS DOWELL #: [id number] SHARMILA: 06/13/19-[address]: New Humphrey MD ENTERED: 06/13/19 SP TYPE: BX LIVER OTHR DR: Jayy Rios i, MD, Ming K MD Quraishi, Mohammed A MD Shahar, Julio MD T [facility] Abby Starks NPORDERED: GROSS COPIES TO: Jayy Disla MD [address] [place], [place] [address] Hosea Mcgrath MD [address] [place] [address] New Humphrey MD [address] [facility], [facility]504 Yusef Rodriguez MD [address] [place] [address] Fabricio Hobbs MD [address] [place], [place] [address] TUMOR REGISTRY Leslie Rangel SHOE PACKER [address] [place] [address] MARKERS: INTRADEPARTMENTAL CONSULT, MALIGNANCY PROCEDURES: GROSS (06/22/19) CONTINUED ON NEXT PAGE RUN DATE: 06/30/19 [facility] PAGE 2 RUN TIME: 1401 Specimen Inquiry RUN USER: INTERFACE SPEC #: [id number] PATIENT: PATSY BECERRA #[id number] (Continued)-- TISSUES: LIVER, NOS - BX 4 SLIDES ADDENDUM FINDINGS Addendum #2 Entered: 06/30/19 A Fish report is received from [employer] ([id number]) and the interpretation is as follows: Interpretation ALK(2p23): Negative for rearrangement of ALK. Comment: No rearrangements detected on ALK(2p23) above the cut off value. The tumor tissue in the spe cimen was analyzed using ALK break apart FISH probe assay. Fluorescence in situ hybridization (FISH) was performed using probes detecting rearrangements of AL K. (All probes Searchbox) Methodolgy: The ALK Break Apart FISH Probe ass ay is a qualitative test to detect rearrangements involving the ALK gene via fl uorescence in situ hybridization (FISH) in formalin-fixed paraffin-embedded (FF PE), non-small cell lung cancer (NSCLC) tissue specimens. Interphase FISH is pe rformed to screen for the loci indicated above and does not detect other chromo somal abnormalities. INTERPHASE FISH RESULT S Probe % Negative % Positive [place] Value % Nucl ei Nuclei Nuclei Analyze d ALK (2p23_lung) 100 0 9.0 50 Scoring Process: The scoring for this case was completed using a per cell nuclei approach to signal counting and was performed manually by a license d technologist. Disclaimer: This test was developed and its performance c haracteristics determined by [facility]. It has not been cleared or a pproved by the U.S. Food and Drug Administration. The FDA has determined that s uch clearance is not necessary. This test is used for clinical purposes. It tiana uld not be regarded as investigational or for research. This laboratory is cert ified under the Clinical Laboratory Improvement Amendments of 1988 (CLIA-88) as qualified to perform high complexity clinical testing. CONTINUED ON NEXT PAGE RUN DATE: 06/30/19 [facility] PAGE 3 RUN TIME: 1401 Specimen Inquiry RUN USER: INTERFACE SPEC #: [id number] PATIENT: PATSY BECERRA #[id number] (Continu ed) ADDENDUM FINDINGS (Continued) Electronic Migdalia Vee MD CPT Code(s): 29729 ICD Code(s): R89.7 The Technic al and Professional components were performed at [facility], [address] [place] [address], [address], [place] [address]. Addendum Signed SIGNATURE ON FILE Buck Kearns MD 06/30/19 788 Addendum #1 Entered: Per the request of Dr. Rodriguez, material from this case was sent to [facility] for EGFR and ALK studies. A report is received from [employer] stating testing was not performed due to insufficient tissue being present. Addendum Signed SIGNATURE ON FILE Buck Healy MD 06/22/19 935 CLINICAL HISTORY COLLECTION DATE: 06/13/2019 HISTORY OF LIVER MASS POST-OP DIAGNOSIS: ? HEPATIC METS CON TINUED ON NEXT PAGE RUN DATE: 06/30/19 [facility] PAGE 4 RUN TIME: 1401 Specimen Inquiry RUN USER: INTERFACE SPEC #: [id number] PATIENT: PATSY BECERRA #[id number] (Continued) COMMENT Sections from the biopsy specimen show hepatic parenchyma infiltrated by irregularly shaped glandular structures and solid aggregates of tumor in a background of desmoplastic fibrosis. The malignant cells have enla rged, hyperchromatic nuclei that are round to more regular in shape. Occasiona l cells are markedly pleomorphic. Variable amounts of cytoplasm are present. Scattered cells have intermediate sized nucleoli. Scattered mitotic figures ar e present. Small patchy areas of necrosis are present within the tumor. Numer ous aggregates of malignant cells are identified in the touch preps slides. Th jayjay occur in a background of blood. Air drying artifact is present but the cyt ologic features are similar to the tumor cells in the tissue section. Paraff in embedded tissue was submitted for immunoperoxidase stains. The slides are r eviewed at [facility]. The controls stain appropriately. The tumor cells are negative for CK5/6 but strong positivity for CK7 and TTF-1. Patchy mild positivity for P63 is present. Strong positivity for CK7 and TTF- 1 supports the interpretation of metastatic adenocarcinoma of pulmonary origin. P63 positivity is more commonly associated with squamous differentiation. However, approximately 30% of pulmonary adenocarcinomas may show some expressio n of P63. The paraffin embedded tissue will be submitted for ALK/EGFR studies. The initial findings were discussed with Dr. Humphrey on 06/14/2019 at 2:00 pm. The findings after receiving the immunoperoxidase stains were discussed with Anjel Browning and Haley 06/15/2019. Intradepartmental consultation: DMW. FINAL DIAGNOSIS Liver mass, needle biopsy and touch prep: TRACY NOCARCINOMA IN HEPATIC PARENCHYMA COMPATIBLE WITH METASTASES FROM PULMO NARY PRIMARY, see comment RRB/sm D 94270, 59962, [id number] MACROSCOPIC The specimen consists of core biopsy material received in [facility], labeled with the patient's name, and identified as "liver". Four slid es are also received to be stained for cytologic evaluation. Within the conta iner the specimen consists of four dark hammonds-white core biopsies that measure f rom 0.7 to 1.5 cm in length by less than 0.1 cm in diameter. The specimen is entirely submitted. GROSS PERFORMED AT [facility] [address] [place] [address] (p)[phone] CONTINUED ON NEXT PAGE ---- --------RUN DATE: 06/30/19 [facility] PAGE 5 RUN TIME: 1401 Specimen Inquiry RUN USER: INTERFACE SPEC #: [id number] PATIENT: PATSY BECERRA #[id number] (Continued) MICROSCOPIC A ll of the stains, including any controls performed, stain appropriately. Parul ICROSCOPIC PERFORMED AT [facility] [address] [place] [address] (P)[phone] PERFORMING [place] ITE Diagnosis performed at: [facility], [place] [address] [facility], [place] [address] Signed SIGNATURE ON FILE Buck Healy MD 06/15/19 1534 END OF REPORT GASTRIC,[id number] 15:13:00 RUN DATE: 06/15/19 [facility] PAGE 1 RUN TIME: 1513 Specimen Inqui ry RUN USER: INTERFACE PATIENT: PATSY BECERRA ACCT #: V [id number] [facility] [id number] AGE/SX: 64/M ROOM: [facility] RE06/11/19[facility] DR: Donnie Bond MD : 55 BED: A DIS: STATUS: ADM IN TLOC: SPEC #: [id number] RECD: 06/13/19 STATUS: TEJAS DOWELL #: [id number] SHARMILA: 06/13/19 [facility] DR: Jayy Disla MD ENTERED: 06/13/19 SP TYPE: GASTRIC BX OTHR DR: Jayy Rios i, MD, Ming K MD Quraishi, Mohammed A MD Shahar, Julio MD Y Leslie hutchins NPORDERED: KOBY COPIES TO: Jayy Disla MD [address] [place] [address] Hosea Mcgrath MD [address] [place] [address] Yusef Rodriguez MD [address] [place] [address] Fabricio Hobbs MD [address] [place] [address] Leslie Rangel NP [address] [place] [address] PROCEDURES: KOBY (06/15/19-1219) T ISSUES: 1. GASTRIC ULCER - BX 2. ESOPHAGUS, NOS - BX CONTINUED ON NEXT PAGE RUN DATE: 0 06/15/19 [facility] PAGE 2 RUN TIME: 1513 Specimen Inquiry R UN USER: INTERFACE --- ---------SPEC #: [id number] PATIENT: HERNANPATSY #[id number] (Continued) CLINICAL HISTORY COLLECTION DATE: 06/13/19 DYSPHAGIA FINAL DIAGNOSIS Gastric ulcer, biopsy: ACUTE EROSIVE GASTRITIS WITH MILD-MARKED REACTIVE EPITHELIAL CHANGE SMALL FRAGMENT OF INTACT GASTRIC MUCOSA WITH MILD REACTIVE GASTROPATHY AND EDEMA NEGATIVE FOR HELICOBACTER ORGANISMS NEGATIVE FOR MALIGNANCY Esophagus, biopsy: MIXED GLANDULAR AND SQUAMOUS EPITHELIUM WITH ALEX NGATION OF SQUAMOUS PAPILLAE, BASAL CELL HYPERPLASIA AND RARE INTRAEPIT HELIAL LYMPHOCYTES NO INCREASED NUMBER OF INTRAEPITHELIAL EOSINOPHILS GASTRIC TYPE GLANDULAR EPITHELIUM WITH PATCHY MILD CHRONIC INFLAMMATION AND REACTIVE EPITHELIAL CHANGE NEGATIVE FOR GOBLET CELL METAPLASIA NEGATIVE FOR DYSPLASIA AND MALIGNANCY REFLUX ESOPHAGITIS RRB/sm D [id number], 56790, 34332 MACROSCOPIC The first specimen i s received in formalin, labeled with the patient's name, identified as "gastri c ulcer bx", and consists of two hammonds biopsy tissue measuring 0.2 and 0.3 cm, s ubmitted as (1). An H E and a Giemsa stain will be prepared. The second specimen is received in formalin, labeled with the patient's name, identified as "esophagus bx", and consists of two hammonds biopsy tissue measuring 0.2 cm ea ch, submitted as (2). GROSS PERFORMED AT [facility] [address] [place] [id number] (p)[phone] CONTINUED ON NEXT PAGE - RUN DATE: 06/15/19 [facility] PAGE 3 RUN TIME: 1513 Specimen Inquiry RUN USER: INTERFACE SPEC #: [id number] PATIENT: PATSY BECERRA #[id number] (Continued) MICROSCOPIC No Helicobacter organisms are identified in the gastric biopsy with Giemsa wicho day. The [place]ian blue stain performed on the esophageal biopsy shows a few sca ttered pseudogoblet cells but no discrete areas of goblet cell metaplasia. All of the stains, including any controls performed, stain appropriately. BARBARA ROSCOPIC PERFORMED AT [facility] [address] [place] [address] (P)[phone] PERFORMING SIT E Diagnosis performed at: [facility] [place] [address] [place], [place] [address] Signed SIGNATURE ON FILE Buck Healy MD 06/15/19 1513 END OF REPORT BASIC METABOLIC PANEL 2019-06-15 06:47:00* Test Item Value Reference Range Comments SODIUM (test code=NA) 135 mmol/L 136-145 POTASSIUM (test code=K) 3.9 mmol/L 3.5-5.1 CHLORIDE (test code=CL) 88.0 mmol/L 98-107 CARBON DIOXIDE (test code=CO2) 39.0 mmol/L 21-32 ANION GAP (test code=GAP) 11.9 10-20 GLUCOSE (test code=GLU) 180 mg/dL 74-106 BLOOD UREA NITROGEN (test code=BUN) 41 mg/dL 7-18 GLOMERULAR FILTRATION RATE (test code=GFR) > 60 mL/min >=60 Estimated GFR by using Modified MDRD formula.Chronic kidney disease is defined as either kidney damageor GFR <60 mL/min/1.73 m2 for >3 months. CREATININE (test code=CREAT) 0.90 mg/dL 0.7-1.3 BUN/CREATININE RATIO (test code=BUN/CREA) 43.6 10-20 CALCIUM (test code=CA) 9.0 mg/dL 8.5-10.1 BASIC METABOLIC [id number] 06:43:00* Test Item Value Reference Range Comments SODIUM (test code=NA) 135 mmol/L 136-145 POTASSIUM (test code=K) 3.9 mmol/L 3.5-5.1 CHLORIDE (test code=CL) 88.0 mmol/L 98-107 CARBON DIOXIDE (test code=CO2) mmol/L 21-32 ANION GAP (test code=GAP) 10-20 GLUCOSE (test code=GLU) mg/dL 74-106 BLOOD UREA NITROGEN (test code=BUN) mg/dL 7-18 GLOMERULAR FILTRATION RATE (test code=GFR) mL/min >=60 CREATININE (test code=CREAT) mg/dL 0.7-1.3 BUN/CREATININE RATIO (test code=BUN/CREA) 10-20 CALCIUM (test code=CA) mg/dL 8.5-10.1 CBC W/AUTO [id number] 06:17:00* Test Item Value Reference Range Comments WHITE BLOOD CELL (test code=WBC) 14.8 K/mm3 4.5-12.5 RED BLOOD CELL (test code=RBC) 4.98 mill/mm3 4.0-5.8 HEMOGLOBIN (test code=HGB) 13.7 gram/dL 13.0-17.5 HEMATOCRIT (test code=HCT) 44.8 % 42.0-52.0 MEAN CELL VOLUME (test code=MCV) 90.0 fL 80-98 MEAN CELL HGB (test code=MCH) 27.5 picogram 27.0-33.0 MEAN CELL HGB CONCETRATION (test code=MCHC) 30.6 gram/dL 33.0-36.0 RED CELL DISTRIBUTION WIDTH (test code=RDW) 14.3 % 11.6-16.2 RED CELL DISTRIBUTION WIDTH SD (test code=RDW-SD) 46.8 fL 37.0-51.0 PLATELET COUNT (test code=PLT) 185 K/mm3 150-450 MEAN PLATELET VOLUME (test code=MPV) 9.6 fL 6.7-11.0 NEUTROPHIL % (test code=NT%) 93.9 % 39.0-69.0 IMMATURE GRANULOCYTE % (test code=IG%) 1.0 % 0.0-5.0 LYMPHOCYTE % (test code=LY%) 2.7 % 25.0-55.0 MONOCYTE % (test code=MO%) 2.2 % 0.0-10.0 EOSINOPHIL % (test code=EO%) 0.0 % 0.0-5.0 BASOPHIL % (test code=BA%) 0.2 % 0.0-1.0 NUCLEATED RBC % (test code=NRBC%) 0.0 % 0-0 NEUTROPHIL # (test code=NT#) 13.86 K/mm3 1.8-7.7 IMMATURE GRANULOCYTE # (test code=IG#) 0.15 x10 3/uL 0-0.03 LYMPHOCYTE # (test code=LY#) 0.40 K/mm3 1.0-5.0 MONOCYTE # (test code=MO#) 0.33 K/mm3 0-0.8 EOSINOPHIL # (test code=EO#) 0.00 K/mm3 0.0-0.5 BASOPHIL # (test code=BA#) 0.03 K/mm3 0.0-0.2 NUCLEATED RBC # (test code=NRBC#) 0.00 K/mm3 0.0-0.1 MANUAL DIFF REQUIRED (test code=MDIFF) NO B-TYPE NATRIURETIC [id number] 11:33:00* Test Item Value Reference Range Comments B-TYPE NATRIURETIC PEPTIDE (test code=BNP) 2275.53 pgram/mL 0-100 BASIC METABOLIC [id number] 11:30:00* Test Item Value Reference Range Comments SODIUM (test code=NA) 137 mmol/L 136-145 POTASSIUM (test code=K) 4.4 mmol/L 3.5-5.1 CHLORIDE (test code=CL) 92.0 mmol/L 98-107 CARBON DIOXIDE (test code=CO2) 38.0 mmol/L 21-32 ANION GAP (test code=GAP) 11.4 10-20 GLUCOSE (test code=GLU) 124 mg/dL 74-106 BLOOD UREA NITROGEN (test code=BUN) 33 mg/dL 7-18 GLOMERULAR FILTRATION RATE (test code=GFR) > 60 mL/min >=60 Estimated GFR by using Modified MDRD formula.Chronic kidney disease is defined as either kidney damageor GFR <60 mL/min/1.73 m2 for >3 months. CREATININE (test code=CREAT) 1.00 mg/dL 0.7-1.3 BUN/CREATININE RATIO (test code=BUN/CREA) 33.5 10-20 CALCIUM (test code=CA) 9.0 mg/dL 8.5-10.1 BASIC METABOLIC [id number] 11:24:00* Test Item Value Reference Range Comments SODIUM (test code=NA) 137 mmol/L 136-145 POTASSIUM (test code=K) 4.4 mmol/L 3.5-5.1 CHLORIDE (test code=CL) 92.0 mmol/L 98-107 CARBON DIOXIDE (test code=CO2) mmol/L 21-32 ANION GAP (test code=GAP) 10-20 GLUCOSE (test code=GLU) mg/dL 74-106 BLOOD UREA NITROGEN (test code=BUN) mg/dL 7-18 GLOMERULAR FILTRATION RATE (test code=GFR) mL/min >=60 CREATININE (test code=CREAT) mg/dL 0.7-1.3 BUN/CREATININE RATIO (test code=BUN/CREA) 10-20 CALCIUM (test code=CA) mg/dL 8.5-10.1 CBC W/AUTO [id number] 11:01:00* Test Item Value Reference Range Comments WHITE BLOOD CELL (test code=WBC) 15.1 K/mm3 4.5-12.5 RED BLOOD CELL (test code=RBC) 4.52 mill/mm3 4.0-5.8 HEMOGLOBIN (test code=HGB) 12.4 gram/dL 13.0-17.5 HEMATOCRIT (test code=HCT) 40.9 % 42.0-52.0 MEAN CELL VOLUME (test code=MCV) 90.5 fL 80-98 MEAN CELL HGB (test code=MCH) 27.4 picogram 27.0-33.0 MEAN CELL HGB CONCETRATION (test code=MCHC) 30.3 gram/dL 33.0-36.0 RED CELL DISTRIBUTION WIDTH (test code=RDW) 14.6 % 11.6-16.2 RED CELL DISTRIBUTION WIDTH SD (test code=RDW-SD) 48.9 fL 37.0-51.0 PLATELET COUNT (test code=PLT) 197 K/mm3 150-450 MEAN PLATELET VOLUME (test code=MPV) 9.5 fL 6.7-11.0 NEUTROPHIL % (test code=NT%) 94.3 % 39.0-69.0 IMMATURE GRANULOCYTE % (test code=IG%) 0.7 % 0.0-5.0 LYMPHOCYTE % (test code=LY%) 2.8 % 25.0-55.0 MONOCYTE % (test code=MO%) 2.1 % 0.0-10.0 EOSINOPHIL % (test code=EO%) 0.0 % 0.0-5.0 BASOPHIL % (test code=BA%) 0.1 % 0.0-1.0 NUCLEATED RBC % (test code=NRBC%) 0.0 % 0-0 NEUTROPHIL # (test code=NT#) 14.25 K/mm3 1.8-7.7 IMMATURE GRANULOCYTE # (test code=IG#) 0.10 x10 3/uL 0-0.03 LYMPHOCYTE # (test code=LY#) 0.43 K/mm3 1.0-5.0 MONOCYTE # (test code=MO#) 0.32 K/mm3 0-0.8 EOSINOPHIL # (test code=EO#) 0.00 K/mm3 0.0-0.5 BASOPHIL # (test code=BA#) 0.01 K/mm3 0.0-0.2 NUCLEATED RBC # (test code=NRBC#) 0.00 K/mm3 0.0-0.1 - USG NDL PLACEMENT (Bxg/Asp)2019-06-13 10:30:00 Name: PATSY BECERRA [facility] : 1955 Age/S: 64 / M [address] Unit #: [id number] Loc: [place] [address] Phys: New Humphrey MD Acct: [id number] Dis Date: Status: ADM IN PHONE #: [phone] Exam Date: 06/13/2019 1000 FAX #: [phone] Reason: LIVER MASS EXAMS: CPT CODE: [id number] USG NDL PLACEMENT (Bxg/Asp) [id number] REASON FOR EXAM: Left lung mass with numerous hepatic lesions Exam order date: 06/13/2019 1:24 PM PROCEDURE: 1. Diagnostic ultrasound of the right upper quadrant. 2. Ultrasound-guided core biopsy of the right lobe the liver with IV conscious sedation [id number]-oa-fafm approximate procedure time is 45 minutes CPT code: 83022, 17904 FINDINGS: The liver is mildly echogenic. There numerous solid lesions in the liver ranges between 1 to 2 cm. The pancreas is within normal limits. The right kidney measures 10.6 x 4.4. There is no evidence of hydronephrosis. There is no evidence of nephrolithiasis. There is no evide nce of renal mass. The gallbladder is well-distended without evid ence of gallstone. The common bile duct measures 0.4 cm. Th ere is no evidence of ascites. The abdomen was prepped and draped in the usual sterile fashion. All elements of maximal sterile barrier tech nique were followed. 2% local lidocaine was given. Under ultrasound guidan ce, a guiding needle was advanced into a left lobe lesion. Multiple core b iopsy were obtained using a 20-gauge biopsy gun. The needle was removed an d hemostasis obtained. MEDICATIONS: 1mg Versed, 25 mcg of Fe ntanyl. COMPLICATIONS: None. Blood loss: Less than 5 mL IMPRESSION: Technically successful ultrasound-guided core bi opsy of small solid lesions in the left lobe of the liver in patient wit h lung mass suspicious for hepatic metastases PAGE 1 Signed Report (CONTINUED) Name: PATSY BECERRA [facility] : 1955 Age/S: 64 / M Yaakov Carmen [facility] Unit #: [id number] Loc: [place] [address] Phys: New Humphrey MD Acct: [id number] Dis Date: Status: ADM IN PHONE #: [phone] Exam Date: 06/13/2019 1000 FAX #: [phone] Reason: LIVER MASS EXAMS: CPT CODE: [id number] USG NDL PLACEMENT (Bxg/Asp) 77980 <Continued> at 1030 Reported and signed by: New Humphrey M.D. CC: Donnie Bond MD Technologist: HUGH SOLOMON RT(R),RDMS Trnakb Date/Time: 06/13/2019 (1030) t.SDR.VTL Orig Print D/T: S: 06/13/2019 (1033) Probe: PAGE 2 Signed Report - US ABDOMEN LTD 2019-06-13 10:30:00 [facility] 1955 [facility]S: 64 [facility] [address] [facility] #: [id number] Loc: [place] [address] Phys: New Humphrey MD Acct: [id number] Dis Date: Status: ADM IN PHONE #: [phone] Exam Date: 06/13/2019 1000 FAX #: [phone] Reason: LIVER EXAMS: CPT CODE: [id number] [facility]BD[facility]EN [facility] [id number] REASON FOR EXAM: Left lung mass with numerous hepatic lesions Exam order date: 06/13/2019 1:24 PM PROCEDURE: 1. Diagnostic ultrasound of the right upper quadrant. 2. Ultrasound-guided core biopsy of the right lobe the liver with IV conscious sedation Nept-zv-txgu approximate procedure time is 45 minutes CPT code: 89611, 63646 FINDINGS: The liver is mildly echogenic. There numerous solid lesions in the liver ranges between 1 to 2 cm. The pancreas is within normal limits. The right kidney measures 10.6 x 4.4. There is no evidence of hydronephrosis. There is no evidence of nephrolithiasis. There is no evidence of renal mass. The gallbladder is well-distended without evidence of gallstone. The common bile duct measures 0.4 cm. There is no evidence of ascites. The abdomen was prepped and draped in the usual sterile fashion. All elements of maximal sterile barrier technique were followed. 2% local lidocaine was given. Under ultrasound guidance, a guiding needle was advanced into a left lobe lesion. Multiple core biopsy were obtained using a 20-gauge biopsy gun. The needle was removed and hemostasis obtained. MEDICATIONS: 1mg Versed, 25 mcg of Fentanyl. COMPLICATIONS: None. Blood loss: Less than 5 mL IMPRESSION: Technically successful ultrasound-guided core biopsy of small solid lesions in the left lobe of the liver in patient with lung mass suspicious for hepatic metastases PAGE 1 Signed Report (CONTINUED) Name: PATSY BECERRA [facility] : 1955 Age/S: 64 / M [address] [facility] Unit #: [id number] Loc: [place] [address] Phys: New Humphrey MD Acct: [id number] Dis Date: Status: ADM IN PHONE #: [phone] Exam Date: 06/13/2019 1000 FAX #: [phone] Reason: LIVER EXAMS: CPT CODE: [id number] ABDOMEN LTD [id number] <Continued> at 1030 Reported and signed by: New Humphrey M.D. CC: Donnie Bond MD Technologist: HUGH SOLOMON RT(R),RDMS Trnscb Date/Time: 06/13/2019 (1030) [email or web address] Orig Print D/T: S: 06/13/2019 (1033) Probe: PAGE 2 Signed Report [id number] 16:39:00* Test Item Value Reference Range Comments TROPONIN-I (test code=TROPI) 0.018 ng/mL 0-0.045 - XR SWLW [facility] W/C [id number] 13:34:00 FAX: Irais Linda MSN [place]: St: ADM FAX: Donnie Bond MD [phone] [facility] 1955 Age/S: 64/M [address] Unit #: [id number] Loc: V.3107 [place] [address] Phys: Irais Linda MSN Acct: [id number] Dis Date: Status: ADM IN PHONE #: [phone] Exam Date: 06/12/2019 1230 FAX #: [phone] Reason: ESPOPHAGEAL DYSPHAGIA EXAMS: CPT CODE: [id number] XR SWLW FUN W/C V 29163 CLINICAL HISTORY: ESPOPHAGEAL DYSPHAGIA TECHNIQUE: Fluoroscopic swallow function evaluation in conjunction with speech therapy. Fluoroscopy time 192 seconds;Dose: 9.1 mGy. IMPRESSION: Handling of varying consistencies of barium were evaluated. There was a single instance of aspiration of nectar consistent barium secondary to regurgitation of barium. No true aspiration or penetration was appreciated. Please see separate speech pathology report for complete discussion. The patient demonstrated regurgitation which may be second altagracia to a more distal obstruction. This can be further evaluated with an esophagram. Electronically Signed by Casper Amato MD on 06/12 at 4429 Reported and signed by: Casper Amato MD CC: Irais Linda MSN; Donnie Bond MD Technologist: SHAHRAM ZAVALA) Trnscrd Alistair e/Time/By: 06/12/2019 (8120) : By: [email or web address] Orig Print D/T: S: 2018 (8538) PAGE 1 Signed Report - CT CHEST W/O [id number] 11:34:00 Name: PATSY BECERRA [facility] : 1955 Age/S: 64 / M [address] Unit #: [id number] Loc: [place] [address] Phys: New Humphrey MD Acct: [id number] Dis Date: Status: ADM IN PHONE #: Exam Date: 06/12/2019 1043 FAX #: Reason: LUNG MASS EXAMS: CPT CODE: [id number] CT CHEST W/O CONTRAST 22324 REASON FOR EXAM: LUNG MAS S EXAM ORDER DATE: 06/12/2019 9:28 AM Ordering M.D.: New Humphrey MD PROCEDURE: - CT CHEST W/O CONTRAST Co mparison:Frontal chest x-ray June 08, [address] images of the chest were obtained without contrast. Reconstructed sagittal and rosalva nal images of the chest were provided for interpretation. Dose reduction techniques were applied. FINDINGS: The abse nce of IV contrast limits the sensitivity of this exam for detecting soft tissue pathology and differentiating atelectasis from consolidations. Visualized neck: Grossly normal Airways, Lungs and Pleur a: Small right-sided and moderate sized left-sided pleural effusion are pr esent. There is compressive subsegmental atelectasis of the underlying low er lobes. There is a mass in the left upper lobe that abuts the major fiss ure as well as the left chest wall. This mass measures 3.6 x 2.4 x 3.5 cm in size. There is also mild centrilobular emphysema in the upper lobes. Mi ld bronchial wall thickening is seen. Heart, great vessels, pulmonary vessels, mediastinum: Postsurgical changes of CABG are present. There is severe atherosclerotic disease throughout all 3 coronary arteries . Atherosclerotic disease is also scattered throughout the thoracic aorta. Thoracic aorta is normal in caliber. Pulmonary trunk is slightly enlarged measuring up to 3.2 cm in diameter. Lymph nodes: No axillar y, internal mammary, or mediastinal adenopathy. Hilar lymph nodes are subo ptimally evaluated due to the absence of IV contrast. Muscul oskeletal/chest wall: Degenerative changes are present in the bilateral ac romioclavicular joints. Healed sternotomy is present. PAGE 1 Signed Report (CONTINUED) Name: SIMON BECERRA AM [facility] : 1955 Age/S: 64 / M [address] Unit #: [id number] Loc: [place] [address] Phys: New Humphrey MD Acct: [id number] Dis Date: Status: ADM IN PHONE #: [phone] Exam Date: 06/12/2019 1042 FAX #: [phone] Reason: LUNG MASS EXAMS: CPT CODE: [id number] CT CHEST W/O CONTRAST 98619 <Continued> Visualized upper abdomen: No gross abnormalities. IMPRESSION: Left upper lobe mass abutting the chest wall and major pleura. No obvious signs of invasion into the overlying chest wall. Bilateral pleural effusions. These effusions appear to be unrelated to the left lung mass described above. Cardiomegaly and severe three-vessel coronary atherosclerosis, status post CABG. at 1134 Reported and signed by: Casper Amato MD CC: Donnie Bond MD Technologist:Omaira Gomez RT(R)(CT) CTDI: DLP: Trnscb Date/Time: 06/12/2019 (4643) t.[email or web address] Orig Print D/T: S: 06/12/2019 (1611) PAGE 2 Signed Report B-TYPE NATRIURETIC [id number] 07:02:00* Test Item Value Reference Range Comments B-TYPE NATRIURETIC PEPTIDE (test code=BNP) 1618.73 pgram/mL 0-100 BASIC METABOLIC [id number] 06:43:00* Test Item Value Reference Range Comments SODIUM (test code=NA) 137 mmol/L 136-145 POTASSIUM (test code=K) 3.8 mmol/L 3.5-5.1 CHLORIDE (test code=CL) 93.0 mmol/L 98-107 CARBON DIOXIDE (test code=CO2) 40.0 mmol/L 21-32 ANION GAP (test code=GAP) 7.8 10-20 GLUCOSE (test code=GLU) 197 mg/dL 74-106 BLOOD UREA NITROGEN (test code=BUN) 25 mg/dL 7-18 GLOMERULAR FILTRATION RATE (test code=GFR) > 60 mL/min >=60 Estimated GFR by using Modified MDRD formula.Chronic kidney disease is defined as either kidney damageor GFR <60 mL/min/1.73 m2 for >3 months. CREATININE (test code=CREAT) 1.00 mg/dL 0.7-1.3 BUN/CREATININE RATIO (test code=BUN/CREA) 25.1 10-20 CALCIUM (test code=CA) 8.7 mg/dL 8.5-10.1 BASIC METABOLIC [id number] 06:36:00* Test Item Value Reference Range Comments SODIUM (test code=NA) 137 mmol/L 136-145 POTASSIUM (test code=K) 3.8 mmol/L 3.5-5.1 CHLORIDE (test code=CL) 93.0 mmol/L 98-107 CARBON DIOXIDE (test code=CO2) mmol/L 21-32 ANION GAP (test code=GAP) 10-20 GLUCOSE (test code=GLU) mg/dL 74-106 BLOOD UREA NITROGEN (test code=BUN) mg/dL 7-18 GLOMERULAR FILTRATION RATE (test code=GFR) mL/min >=60 CREATININE (test code=CREAT) mg/dL 0.7-1.3 BUN/CREATININE RATIO (test code=BUN/CREA) 10-20 CALCIUM (test code=CA) mg/dL 8.5-10.1 CBC W/AUTO [id number] 06:08:00* Test Item Value Reference Range Comments WHITE BLOOD CELL (test code=WBC) 17.5 K/mm3 4.5-12.5 RED BLOOD CELL (test code=RBC) 4.23 mill/mm3 4.0-5.8 HEMOGLOBIN (test code=HGB) 11.7 gram/dL 13.0-17.5 HEMATOCRIT (test code=HCT) 39.0 % 42.0-52.0 MEAN CELL VOLUME (test code=MCV) 92.2 fL 80-98 MEAN CELL HGB (test code=MCH) 27.7 picogram 27.0-33.0 MEAN CELL HGB CONCETRATION (test code=MCHC) 30.0 gram/dL 33.0-36.0 RED CELL DISTRIBUTION WIDTH (test code=RDW) 14.5 % 11.6-16.2 RED CELL DISTRIBUTION WIDTH SD (test code=RDW-SD) 49.0 fL 37.0-51.0 PLATELET COUNT (test code=PLT) 194 K/mm3 150-450 MEAN PLATELET VOLUME (test code=MPV) 9.3 fL 6.7-11.0 NEUTROPHIL % (test code=NT%) 94.4 % 39.0-69.0 IMMATURE GRANULOCYTE % (test code=IG%) 0.9 % 0.0-5.0 LYMPHOCYTE % (test code=LY%) 2.6 % 25.0-55.0 MONOCYTE % (test code=MO%) 1.9 % 0.0-10.0 EOSINOPHIL % (test code=EO%) 0.0 % 0.0-5.0 BASOPHIL % (test code=BA%) 0.2 % 0.0-1.0 NUCLEATED RBC % (test code=NRBC%) 0.0 % 0-0 NEUTROPHIL # (test code=NT#) 16.55 K/mm3 1.8-7.7 IMMATURE GRANULOCYTE # (test code=IG#) 0.15 x10 3/uL 0-0.03 LYMPHOCYTE # (test code=LY#) 0.45 K/mm3 1.0-5.0 MONOCYTE # (test code=MO#) 0.33 K/mm3 0-0.8 EOSINOPHIL # (test code=EO#) 0.00 K/mm3 0.0-0.5 BASOPHIL # (test code=BA#) 0.03 K/mm3 0.0-0.2 NUCLEATED RBC # (test code=NRBC#) 0.00 K/mm3 0.0-0.1 T3 [id number] 06:07:00* Test Item Value Reference Range Comments T3 FREE (test code=T3F) 1.3 pg/mL 2.0-4.4 Performed At: [facility] [address] [id number] Zac Mora MD Ph:[phone] THYROID PROFILE [id number] 12:02:00* Test Item Value Reference Range Comments T3 UPTAKE (test code=T3UP) 38.0 % 30.0-40.0 T4 (THYROXINE) (test code=T4) 5.7 ug/dL 4.5-13.9 T7 (FREE THYROXINE INDEX) (test code=T7) 2.16 FTI 1.3-5.1 THYROID STIMULATING HORMONE (test code=TSH) 0.437 uIU/mL 0.36-3.74 TSH REFERENCE RANGES: EUTHYROID: 0.35 - 4.3 mIU/mL HYPO : > 5.5 mIU/mL HYPER : < 0.35 mIU/mL T4 [id number] 12:02:00* Test Item Value Reference Range Comments T4 FREE (test code=T4F) 1.03 ng/dL 0.76-1.46 PROTHROMBIN [id number] 04:53:00* Test Item Value Reference Range Comments PROTHROMBIN TIME PATIENT (test code=PTP) 15.0 seconds 9.0-14.0 INTERNATIONAL NORMAL RATIO (test code=INR) 1.3 0.8-1.2 The therapeutic range for oral anticoagulant therapy formost indications is an international normalized ratio (INR)of between 2.0 and 3.0. The recommended therapeutic INRrange for various clinical situations is listed below: Clinical Situation INR range Pulmonary e mbolism treatment (2.0-3.0)Venous thrombosis treatmentVenous thrombosis prophylaxis (high risk surgery)Prevention of systemic embolism from: Acute myocardial infarction Valvular heart disease Atrial fibrillation Mechanical prosthetic heart valves (2.5-3.5) IS PATIENT ON ANTICOAGULANTS? YLIST ANTICOAGULANTS LOVENOXIS PATIENT ON ANTI COAGULANTS? NTHROMBOPLASTIN TIME [id number] 04:53:00* Test Item Value Reference Range Comments THROMBOPLASTIN TIME PARTIAL (test code=PTT) 33.6 seconds 25.0-36.5 IS PATIENT ON ANTICOAGULANTS? YLIST ANTICOAGULANTS LOVENOXIS PATIENT ON ANTI COAGULANTS? NB-TYPE NATRIURETIC [id number] 04:50:00* Test Item Value Reference Range Comments B-TYPE NATRIURETIC PEPTIDE (test code=BNP) 2483.78 pgram/mL 0-100 BASIC METABOLIC [id number] 04:35:00* Test Item Value Reference Range Comments SODIUM (test code=NA) 135 mmol/L 136-145 POTASSIUM (test code=K) 4.3 mmol/L 3.5-5.1 CHLORIDE (test code=CL) 95.0 mmol/L 98-107 CARBON DIOXIDE (test code=CO2) 33.0 mmol/L 21-32 ANION GAP (test code=GAP) 11.3 10-20 GLUCOSE (test code=GLU) 199 mg/dL 74-106 BLOOD UREA NITROGEN (test code=BUN) 19 mg/dL 7-18 GLOMERULAR FILTRATION RATE (test code=GFR) > 60 mL/min >=60 Estimated GFR by using Modified MDRD formula.Chronic kidney disease is defined as either kidney damageor GFR <60 mL/min/1.73 m2 for >3 months. CREATININE (test code=CREAT) 0.90 mg/dL 0.7-1.3 BUN/CREATININE RATIO (test code=BUN/CREA) 21.4 10-20 CALCIUM (test code=CA) 8.7 mg/dL 8.5-10.1 [id number] 04:35:00* Test Item Value Reference Range Comments MAGNESIUM (test code=MAG) 1.9 mg/dL 1.8-2.4 CBC W/AUTO [id number] 04:30:00* Test Item Value Reference Range Comments WHITE BLOOD CELL (test code=WBC) 8.2 K/mm3 4.5-12.5 RED BLOOD CELL (test code=RBC) 4.46 mill/mm3 4.0-5.8 HEMOGLOBIN (test code=HGB) 12.3 gram/dL 13.0-17.5 HEMATOCRIT (test code=HCT) 40.3 % 42.0-52.0 MEAN CELL VOLUME (test code=MCV) 90.4 fL 80-98 MEAN CELL HGB (test code=MCH) 27.6 picogram 27.0-33.0 MEAN CELL HGB CONCETRATION (test code=MCHC) 30.5 gram/dL 33.0-36.0 RED CELL DISTRIBUTION WIDTH (test code=RDW) 14.6 % 11.6-16.2 RED CELL DISTRIBUTION WIDTH SD (test code=RDW-SD) 48.1 fL 37.0-51.0 PLATELET COUNT (test code=PLT) 188 K/mm3 150-450 MEAN PLATELET VOLUME (test code=MPV) 9.5 fL 6.7-11.0 NEUTROPHIL % (test code=NT%) 91.8 % 39.0-69.0 IMMATURE GRANULOCYTE % (test code=IG%) 0.4 % 0.0-5.0 LYMPHOCYTE % (test code=LY%) 5.9 % 25.0-55.0 MONOCYTE % (test code=MO%) 1.8 % 0.0-10.0 EOSINOPHIL % (test code=EO%) 0.0 % 0.0-5.0 BASOPHIL % (test code=BA%) 0.1 % 0.0-1.0 NUCLEATED RBC % (test code=NRBC%) 0.0 % 0-0 NEUTROPHIL # (test code=NT#) 7.48 K/mm3 1.8-7.7 IMMATURE GRANULOCYTE # (test code=IG#) 0.03 x10 3/uL 0-0.03 LYMPHOCYTE # (test code=LY#) 0.48 K/mm3 1.0-5.0 MONOCYTE # (test code=MO#) 0.15 K/mm3 0-0.8 EOSINOPHIL # (test code=EO#) 0.00 K/mm3 0.0-0.5 BASOPHIL # (test code=BA#) 0.01 K/mm3 0.0-0.2 NUCLEATED RBC # (test code=NRBC#) 0.00 K/mm3 0.0-0.1 MANUAL DIFF REQUIRED (test code=MDIFF) NO BASIC METABOLIC [id number] 04:27:00* Test Item Value Reference Range Comments SODIUM (test code=NA) 135 mmol/L 136-145 POTASSIUM (test code=K) 4.3 mmol/L 3.5-5.1 CHLORIDE (test code=CL) 95.0 mmol/L 98-107 CARBON DIOXIDE (test code=CO2) mmol/L 21-32 ANION GAP (test code=GAP) 10-20 GLUCOSE (test code=GLU) mg/dL 74-106 BLOOD UREA NITROGEN (test code=BUN) mg/dL 7-18 GLOMERULAR FILTRATION RATE (test code=GFR) mL/min >=60 CREATININE (test code=CREAT) mg/dL 0.7-1.3 BUN/CREATININE RATIO (test code=BUN/CREA) 10-20 CALCIUM (test code=CA) mg/dL 8.5-10.1 [id number] 04:27:00* Test Item Value Reference Range Comments MAGNESIUM (test code=MAG) mg/dL 1.8-2.4 B-TYPE NATRIURETIC [id number] 06:37:00* Test Item Value Reference Range Comments B-TYPE NATRIURETIC PEPTIDE (test code=BNP) 1856.02 pgram/mL 0-100 BASIC METABOLIC [id number] 06:03:00* Test Item Value Reference Range Comments SODIUM (test code=NA) 135 mmol/L 136-145 POTASSIUM (test code=K) 3.9 mmol/L 3.5-5.1 CHLORIDE (test code=CL) 95.0 mmol/L 98-107 CARBON DIOXIDE (test code=CO2) 34.0 mmol/L 21-32 ANION GAP (test code=GAP) 9.9 10-20 GLUCOSE (test code=GLU) 92 mg/dL 74-106 BLOOD UREA NITROGEN (test code=BUN) 17 mg/dL 7-18 GLOMERULAR FILTRATION RATE (test code=GFR) > 60 mL/min >=60 Estimated GFR by using Modified MDRD formula.Chronic kidney disease is defined as either kidney damageor GFR <60 mL/min/1.73 m2 for >3 months. CREATININE (test code=CREAT) 0.80 mg/dL 0.7-1.3 BUN/CREATININE RATIO (test code=BUN/CREA) 22.1 10-20 CALCIUM (test code=CA) 8.7 mg/dL 8.5-10.1 BASIC METABOLIC [id number] 06:01:00* Test Item Value Reference Range Comments SODIUM (test code=NA) 135 mmol/L 136-145 POTASSIUM (test code=K) 3.9 mmol/L 3.5-5.1 CHLORIDE (test code=CL) 95.0 mmol/L 98-107 CARBON DIOXIDE (test code=CO2) mmol/L 21-32 ANION GAP (test code=GAP) 10-20 GLUCOSE (test code=GLU) mg/dL 74-106 BLOOD UREA NITROGEN (test code=BUN) mg/dL 7-18 GLOMERULAR FILTRATION RATE (test code=GFR) mL/min >=60 CREATININE (test code=CREAT) mg/dL 0.7-1.3 BUN/CREATININE RATIO (test code=BUN/CREA) 10-20 CALCIUM (test code=CA) 8.7 mg/dL 8.5-10.1 CBC W/AUTO [id number] 05:43:00* Test Item Value Reference Range Comments WHITE BLOOD CELL (test code=WBC) 8.9 K/mm3 4.5-12.5 RED BLOOD CELL (test code=RBC) 4.37 mill/mm3 4.0-5.8 HEMOGLOBIN (test code=HGB) 12.0 gram/dL 13.0-17.5 HEMATOCRIT (test code=HCT) 39.5 % 42.0-52.0 MEAN CELL VOLUME (test code=MCV) 90.4 fL 80-98 MEAN CELL HGB (test code=MCH) 27.5 picogram 27.0-33.0 MEAN CELL HGB CONCETRATION (test code=MCHC) 30.4 gram/dL 33.0-36.0 RED CELL DISTRIBUTION WIDTH (test code=RDW) 14.7 % 11.6-16.2 RED CELL DISTRIBUTION WIDTH SD (test code=RDW-SD) 49.1 fL 37.0-51.0 PLATELET COUNT (test code=PLT) 194 K/mm3 150-450 MEAN PLATELET VOLUME (test code=MPV) 9.1 fL 6.7-11.0 NEUTROPHIL % (test code=NT%) 74.2 % 39.0-69.0 IMMATURE GRANULOCYTE % (test code=IG%) 0.3 % 0.0-5.0 LYMPHOCYTE % (test code=LY%) 14.9 % 25.0-55.0 MONOCYTE % (test code=MO%) 8.6 % 0.0-10.0 EOSINOPHIL % (test code=EO%) 1.8 % 0.0-5.0 BASOPHIL % (test code=BA%) 0.2 % 0.0-1.0 NUCLEATED RBC % (test code=NRBC%) 0.0 % 0-0 NEUTROPHIL # (test code=NT#) 6.59 K/mm3 1.8-7.7 IMMATURE GRANULOCYTE # (test code=IG#) 0.03 x10 3/uL 0-0.03 LYMPHOCYTE # (test code=LY#) 1.32 K/mm3 1.0-5.0 MONOCYTE # (test code=MO#) 0.76 K/mm3 0-0.8 EOSINOPHIL # (test code=EO#) 0.16 K/mm3 0.0-0.5 BASOPHIL # (test code=BA#) 0.02 K/mm3 0.0-0.2 NUCLEATED RBC # (test code=NRBC#) 0.00 K/mm3 0.0-0.1 MANUAL DIFF REQUIRED (test code=MDIFF) NO BASIC METABOLIC [id number] 09:04:00* Test Item Value Reference Range Comments SODIUM (test code=NA) 137 mmol/L 136-145 POTASSIUM (test code=K) 3.8 mmol/L 3.5-5.1 CHLORIDE (test code=CL) 96.0 mmol/L 98-107 CARBON DIOXIDE (test code=CO2) 34.0 mmol/L 21-32 ANION GAP (test code=GAP) 10.8 10-20 GLUCOSE (test code=GLU) 98 mg/dL 74-106 BLOOD UREA NITROGEN (test code=BUN) 17 mg/dL 7-18 GLOMERULAR FILTRATION RATE (test code=GFR) > 60 mL/min >=60 Estimated GFR by using Modified MDRD formula.Chronic kidney disease is defined as either kidney damageor GFR <60 mL/min/1.73 m2 for >3 months. CREATININE (test code=CREAT) 0.80 mg/dL 0.7-1.3 BUN/CREATININE RATIO (test code=BUN/CREA) 20.2 10-20 CALCIUM (test code=CA) 9.2 mg/dL 8.5-10.1 [id number] 09:04:00* Test Item Value Reference Range Comments MAGNESIUM (test code=MAG) 2.2 mg/dL 1.8-2.4 BASIC METABOLIC [id number] 09:02:00* Test Item Value Reference Range Comments SODIUM (test code=NA) 137 mmol/L 136-145 POTASSIUM (test code=K) 3.8 mmol/L 3.5-5.1 CHLORIDE (test code=CL) 96.0 mmol/L 98-107 CARBON DIOXIDE (test code=CO2) 34.0 mmol/L 21-32 ANION GAP (test code=GAP) 10.8 10-20 GLUCOSE (test code=GLU) 98 mg/dL 74-106 BLOOD UREA NITROGEN (test code=BUN) 17 mg/dL 7-18 GLOMERULAR FILTRATION RATE (test code=GFR) > 60 mL/min >=60 Estimated GFR by using Modified MDRD formula.Chronic kidney disease is defined as either kidney damageor GFR <60 mL/min/1.73 m2 for >3 months. CREATININE (test code=CREAT) 0.80 mg/dL 0.7-1.3 BUN/CREATININE RATIO (test code=BUN/CREA) 20.2 10-20 CALCIUM (test code=CA) 9.2 mg/dL 8.5-10.1 [id number] 09:02:00* Test Item Value Reference Range Comments MAGNESIUM (test code=MAG) mg/dL 1.8-2.4 BASIC METABOLIC [id number] 08:48:00* Test Item Value Reference Range Comments SODIUM (test code=NA) 137 mmol/L 136-145 POTASSIUM (test code=K) 3.8 mmol/L 3.5-5.1 CHLORIDE (test code=CL) 96.0 mmol/L 98-107 CARBON DIOXIDE (test code=CO2) mmol/L 21-32 ANION GAP (test code=GAP) 10-20 GLUCOSE (test code=GLU) mg/dL 74-106 BLOOD UREA NITROGEN (test code=BUN) mg/dL 7-18 GLOMERULAR FILTRATION RATE (test code=GFR) mL/min >=60 CREATININE (test code=CREAT) mg/dL 0.7-1.3 BUN/CREATININE RATIO (test code=BUN/CREA) 10-20 CALCIUM (test code=CA) mg/dL 8.5-10.1 [id number] 08:48:00* Test Item Value Reference Range Comments MAGNESIUM (test code=MAG) mg/dL 1.8-2.4 CBC W/AUTO [id number] 08:20:00* Test Item Value Reference Range Comments WHITE BLOOD CELL (test code=WBC) 8.5 K/mm3 4.5-12.5 RED BLOOD CELL (test code=RBC) 4.51 mill/mm3 4.0-5.8 HEMOGLOBIN (test code=HGB) 12.4 gram/dL 13.0-17.5 HEMATOCRIT (test code=HCT) 41.2 % 42.0-52.0 MEAN CELL VOLUME (test code=MCV) 91.4 fL 80-98 MEAN CELL HGB (test code=MCH) 27.5 picogram 27.0-33.0 MEAN CELL HGB CONCETRATION (test code=MCHC) 30.1 gram/dL 33.0-36.0 RED CELL DISTRIBUTION WIDTH (test code=RDW) 14.8 % 11.6-16.2 RED CELL DISTRIBUTION WIDTH SD (test code=RDW-SD) 49.5 fL 37.0-51.0 PLATELET COUNT (test code=PLT) 211 K/mm3 150-450 MEAN PLATELET VOLUME (test code=MPV) 8.9 fL 6.7-11.0 NEUTROPHIL % (test code=NT%) 71.8 % 39.0-69.0 IMMATURE GRANULOCYTE % (test code=IG%) 0.9 % 0.0-5.0 LYMPHOCYTE % (test code=LY%) 16.9 % 25.0-55.0 MONOCYTE % (test code=MO%) 8.4 % 0.0-10.0 EOSINOPHIL % (test code=EO%) 1.8 % 0.0-5.0 BASOPHIL % (test code=BA%) 0.2 % 0.0-1.0 NUCLEATED RBC % (test code=NRBC%) 0.0 % 0-0 NEUTROPHIL # (test code=NT#) 6.07 K/mm3 1.8-7.7 IMMATURE GRANULOCYTE # (test code=IG#) 0.08 x10 3/uL 0-0.03 LYMPHOCYTE # (test code=LY#) 1.43 K/mm3 1.0-5.0 MONOCYTE # (test code=MO#) 0.71 K/mm3 0-0.8 EOSINOPHIL # (test code=EO#) 0.15 K/mm3 0.0-0.5 BASOPHIL # (test code=BA#) 0.02 K/mm3 0.0-0.2 NUCLEATED RBC # (test code=NRBC#) 0.00 K/mm3 0.0-0.1 MANUAL DIFF REQUIRED (test code=MDIFF) NO BASIC METABOLIC [id number] 04:04:00* Test Item Value Reference Range Comments SODIUM (test code=NA) 137 mmol/L 136-145 POTASSIUM (test code=K) 4.2 mmol/L 3.5-5.1 CHLORIDE (test code=CL) 97.0 mmol/L 98-107 CARBON DIOXIDE (test code=CO2) 32.0 mmol/L 21-32 ANION GAP (test code=GAP) 12.2 10-20 GLUCOSE (test code=GLU) 96 mg/dL 74-106 BLOOD UREA NITROGEN (test code=BUN) 17 mg/dL 7-18 GLOMERULAR FILTRATION RATE (test code=GFR) > 60 mL/min >=60 Estimated GFR by using Modified MDRD formula.Chronic kidney disease is defined as either kidney damageor GFR <60 mL/min/1.73 m2 for >3 months. CREATININE (test code=CREAT) 0.90 mg/dL 0.7-1.3 BUN/CREATININE RATIO (test code=BUN/CREA) 19.5 10-20 CALCIUM (test code=CA) 9.0 mg/dL 8.5-10.1 [id number] 04:04:00* Test Item Value Reference Range Comments PHOSPHORUS (test code=PHOS) 3.8 mg/dL 2.5-4.9 [id number] 04:04:00* Test Item Value Reference Range Comments MAGNESIUM (test code=MAG) 2.1 mg/dL 1.8-2.4 PROTHROMBIN [id number] 03:55:00* Test Item Value Reference Range Comments PROTHROMBIN TIME PATIENT (test code=PTP) 16.5 seconds 9.0-14.0 INTERNATIONAL NORMAL RATIO (test code=INR) 1.4 0.8-1.2 The therapeutic range for oral anticoagulant therapy formost indications is an international normalized ratio (INR)of between 2.0 and 3.0. The recommended therapeutic INRrange for various clinical situations is listed below: Clinical Situation INR range Pulmonary e mbolism treatment (2.0-3.0)Venous thrombosis treatmentVenous thrombosis prophylaxis (high risk surgery)Prevention of systemic embolism from: Acute myocardial infarction Valvular heart disease Atrial fibrillation Mechanical prosthetic heart valves (2.5-3.5) IS PATIENT ON ANTICOAGULANTS? NTHROMBOPLASTIN TIME [id number] 03:55:00* Test Item Value Reference Range Comments THROMBOPLASTIN TIME PARTIAL (test code=PTT) 32.7 seconds 25.0-36.5 IS PATIENT ON ANTICOAGULANTS? NCBC W/AUTO [id number] 03:53:00* Test Item Value Reference Range Comments WHITE BLOOD CELL (test code=WBC) 8.9 K/mm3 4.5-12.5 RED BLOOD CELL (test code=RBC) 4.45 mill/mm3 4.0-5.8 HEMOGLOBIN (test code=HGB) 12.3 gram/dL 13.0-17.5 HEMATOCRIT (test code=HCT) 39.8 % 42.0-52.0 MEAN CELL VOLUME (test code=MCV) 89.4 fL 80-98 MEAN CELL HGB (test code=MCH) 27.6 picogram 27.0-33.0 MEAN CELL HGB CONCETRATION (test code=MCHC) 30.9 gram/dL 33.0-36.0 RED CELL DISTRIBUTION WIDTH (test code=RDW) 14.8 % 11.6-16.2 RED CELL DISTRIBUTION WIDTH SD (test code=RDW-SD) 47.9 fL 37.0-51.0 PLATELET COUNT (test code=PLT) 216 K/mm3 150-450 MEAN PLATELET VOLUME (test code=MPV) 9.5 fL 6.7-11.0 NEUTROPHIL % (test code=NT%) 76.2 % 39.0-69.0 IMMATURE GRANULOCYTE % (test code=IG%) 0.2 % 0.0-5.0 LYMPHOCYTE % (test code=LY%) 13.2 % 25.0-55.0 MONOCYTE % (test code=MO%) 9.0 % 0.0-10.0 EOSINOPHIL % (test code=EO%) 1.2 % 0.0-5.0 BASOPHIL % (test code=BA%) 0.2 % 0.0-1.0 NUCLEATED RBC % (test code=NRBC%) 0.0 % 0-0 NEUTROPHIL # (test code=NT#) 6.79 K/mm3 1.8-7.7 IMMATURE GRANULOCYTE # (test code=IG#) 0.02 x10 3/uL 0-0.03 LYMPHOCYTE # (test code=LY#) 1.18 K/mm3 1.0-5.0 MONOCYTE # (test code=MO#) 0.80 K/mm3 0-0.8 EOSINOPHIL # (test code=EO#) 0.11 K/mm3 0.0-0.5 BASOPHIL # (test code=BA#) 0.02 K/mm3 0.0-0.2 NUCLEATED RBC # (test code=NRBC#) 0.00 K/mm3 0.0-0.1 MANUAL DIFF REQUIRED (test code=MDIFF) NO [id number] 16:33:00* Test Item Value Reference Range Comments TROPONIN-I (test code=TROPI) <0.015 ng/mL 0-0.045 COMMENTS TO OVER[employer] BUS [employer]UCK: COLLECT 3 HOURS AFTER PREVIOUS [id number] 13:15:00* Test Item Value Reference Range Comments TROPONIN-I (test code=TROPI) 0.018 ng/mL 0-0.045 COMMENTS TO OVERHA[employer] BUS TRUCK: COLLECT 3 HOURS AFTER PREVIOUS SAMPLEARTERIAL BLOOD [id number] 08:56:00* Test Item Value Reference Range Comments ARTERIAL BLOOD GAS PH (test code=PHA) 7.43 7.35-7.45 ARTERIAL BLOOD GAS PCO2 (test code=PCO2A) 46.7 mm Hg 35-45 ARTERIAL BLOOD GAS PO2 (test code=PO2A) 237.0 mmHg 80-100 BICARBONATE TOTAL HCO3 (test code=HCO3) 30.0 mmol/L 23.0-27.0 BASE EXCESS (test code=LADAN) 4.8 mmol/L -3.0-5.0 ABG O2 SATURATION (test code=SATA) 99.1 % 90.0-98.0 ABG TYPE (test code=TYPEA) Arterial FIO2 (test code=FIO2A) 100.0 ABG SITE (test code=SITEA) Rt BRACHIAL ARTERY MODIFIED ALLENS (test code=MODALL) Yes CHECK PERFORMED HEMATOCRIT (test code=HCT/ABG) 38 % 42-52 TOTAL HGB (test code=THB) 12.8 gram/dL 13.0-17.5 HGB O2 SAT (test code=HBOSAT) 97.2 % 94.00-98.00 CARBOXYHEMOGLOBIN (test code=HOHGBT) 1.5 %totalHg 0.5-1.5 METHEMOGLOBIN (test code=METHGB) 0.4 % 0.0-1.50 O2 CONTENT (test code=O2CT) 18.0 % vol 18.0-22.0 B-TYPE NATRIURETIC [id number] 08:06:00* Test Item Value Reference Range Comments B-TYPE NATRIURETIC PEPTIDE (test code=BNP) 2295.66 pgram/mL 0-100 LACTIC [id number] 08:00:00* Test Item Value Reference Range Comments LACTIC ACID (test code=LACT) 1.5 mmol/L 0.4-1.9 BASIC METABOLIC [id number] 07:45:00* Test Item Value Reference Range Comments SODIUM (test code=NA) 133 mmol/L 136-145 POTASSIUM (test code=K) 4.5 mmol/L 3.5-5.1 CHLORIDE (test code=CL) 93.0 mmol/L 98-107 CARBON DIOXIDE (test code=CO2) 33.0 mmol/L 21-32 ANION GAP (test code=GAP) 11.5 10-20 GLUCOSE (test code=GLU) 102 mg/dL 74-106 BLOOD UREA NITROGEN (test code=BUN) 15 mg/dL 7-18 GLOMERULAR FILTRATION RATE (test code=GFR) > 60 mL/min >=60 Estimated GFR by using Modified MDRD formula.Chronic kidney disease is defined as either kidney damageor GFR <60 mL/min/1.73 m2 for >3 months. CREATININE (test code=CREAT) 1.00 mg/dL 0.7-1.3 BUN/CREATININE RATIO (test code=BUN/CREA) 14.9 10-20 CALCIUM (test code=CA) 10.3 mg/dL 8.5-10.1 [id number] 07:45:00* Test Item Value Reference Range Comments TROPONIN-I (test code=TROPI) 0.030 ng/mL 0-0.045 BASIC METABOLIC [id number] 07:31:00* Test Item Value Reference Range Comments SODIUM (test code=NA) 133 mmol/L 136-145 POTASSIUM (test code=K) 4.5 mmol/L 3.5-5.1 CHLORIDE (test code=CL) 93.0 mmol/L 98-107 CARBON DIOXIDE (test code=CO2) mmol/L 21-32 ANION GAP (test code=GAP) 10-20 GLUCOSE (test code=GLU) mg/dL 74-106 BLOOD UREA NITROGEN (test code=BUN) mg/dL 7-18 GLOMERULAR FILTRATION RATE (test code=GFR) mL/min >=60 CREATININE (test code=CREAT) mg/dL 0.7-1.3 BUN/CREATININE RATIO (test code=BUN/CREA) 10-20 CALCIUM (test code=CA) 10.3 mg/dL 8.5-10.1 [id number] 07:31:00* Test Item Value Reference Range Comments TROPONIN-I (test code=TROPI) ng/mL 0-0.045 CBC W/O [id number] 07:30:00* Test Item Value Reference Range Comments WHITE BLOOD CELL (test code=WBC) 8.9 K/mm3 4.5-12.5 RED BLOOD CELL (test code=RBC) 5.14 mill/mm3 4.0-5.8 HEMOGLOBIN (test code=HGB) 14.1 gram/dL 13.0-17.5 HEMATOCRIT (test code=HCT) 46.6 % 42.0-52.0 MEAN CELL VOLUME (test code=MCV) 90.7 fL 80-98 MEAN CELL HGB (test code=MCH) 27.4 picogram 27.0-33.0 MEAN CELL HGB CONCETRATION (test code=MCHC) 30.3 gram/dL 33.0-36.0 RED CELL DISTRIBUTION WIDTH (test code=RDW) 14.8 % 11.6-16.2 PLATELET COUNT (test code=PLT) 240 K/mm3 150-450 MEAN PLATELET VOLUME (test code=MPV) 8.9 fL 6.7-11.0 - XR CHEST 1 [id number] 07:28:00 FAX: Raymundo Niño MD [phone] [place]: B St: PRE Name: PATSY GAR [facility] : [birth year] Age/S: 64/M Yaakov Zhu Unit #: [id number] Loc: [place] [place] [address] Phys: Raymundo Niño MD Acct: [id number] Dis Date: Status: PRE ER PHONE #: [phone] Exam Date: 06/08/2019719 FAX #: [phone] Reason: Shortness of Breath EXAMS: CPT CODE: [id number] XR CHEST 1 V 47968 HISTORY: Shortness of breath. COMPARISON: None available. No acute infiltrates, or con gestion is noted. Small effusion. 3 cm pleural-based mass in the inferio r lateral left upper lobe. Follow-up with CT scan. Mild bullous changes. Cardiomegaly. IMPRESSION: 3 cm well-circum scribed lobular mass appears pleural-based in the inferior lateral left upper pole. Follow-up with CT scan. Small effusion. No infiltrates or congestion. Bullous changes with upper lobe predominance. at 0728 Reported and signed by: Jeferson Pablo M.D. CC: Raymundo Niño MD Technologist: EDWARD TOWNSEND RT(R) Trnscrd Date/Time/By: 06/08/2019 ( 07) : By: [email or web address] Orig Print D/T: S: 06/08/2019 (0731) PAGE 1 Signed Report TROPONIN I [id number] 07:24:00* Test Item Value Reference Range Comments TROPONIN I RAPID (test code=TROPIRAP) 0.00 ng/mL <0.08 Please Note New Reference Range 0.00-0.079 ng/mL - Negative>or=0.08 ng/mL - Positive The use of serial sampling and testing protocol is arecommended practice.An elevated troponin level alone is often not sufficient fordiagnosis of myocardial infarction. Troponin results obtained by different assays may vary.Evaluation of the extent of myocardial damage based onincrease of troponin would be valid only if similarmethodology is used. CBC W/O [id number] 07:23:00* Test Item Value Reference Range Comments WHITE BLOOD CELL (test code=WBC) K/mm3 4.5-12.5 RED BLOOD CELL (test code=RBC) mill/mm3 4.0-5.8 HEMOGLOBIN (test code=HGB) 14.1 gram/dL 13.0-17.5 HEMATOCRIT (test code=HCT) 46.6 % 42.0-52.0 MEAN CELL VOLUME (test code=MCV) fL 80-98 MEAN CELL HGB (test code=MCH) picogram 27.0-33.0 MEAN CELL HGB CONCETRATION (test code=MCHC) gram/dL 33.0-36.0 RED CELL DISTRIBUTION WIDTH (test code=RDW) % 11.6-16.2 PLATELET COUNT (test code=PLT) K/mm3 150-450 MEAN PLATELET VOLUME (test code=MPV) fL 6.7-11.0 POC LACTIC [id number] 07:18:00* Test Item Value Reference Range Comments POC LACTIC ACID (test code=POCLAC) 2.30 MMOL/L 0.4-2.2 BASIC METABOLIC [id number] 07:25:00* Test Item Value Reference Range Comments SODIUM (test code=NA) 135 mmol/L 136-145 POTASSIUM (test code=K) 3.5 mmol/L 3.5-5.1 CHLORIDE (test code=CL) 97.0 mmol/L 98-107 CARBON DIOXIDE (test code=CO2) 30.0 mmol/L 21-32 ANION GAP (test code=GAP) 11.5 10-20 GLUCOSE (test code=GLU) 82 mg/dL 74-106 BLOOD UREA NITROGEN (test code=BUN) 23 mg/dL 7-18 GLOMERULAR FILTRATION RATE (test code=GFR) > 60 mL/min >=60 Estimated GFR by using Modified MDRD formula.Chronic kidney disease is defined as either kidney damageor GFR <60 mL/min/1.73 m2 for >3 months. CREATININE (test code=CREAT) 1.10 mg/dL 0.7-1.3 BUN/CREATININE RATIO (test code=BUN/CREA) 20.9 10-20 CALCIUM (test code=CA) 9.1 mg/dL 8.5-10.1 BASIC METABOLIC [id number] 06:56:00* Test Item Value Reference Range Comments SODIUM (test code=NA) 135 mmol/L 136-145 POTASSIUM (test code=K) 3.5 mmol/L 3.5-5.1 CHLORIDE (test code=CL) 97.0 mmol/L 98-107 CARBON DIOXIDE (test code=CO2) mmol/L 21-32 ANION GAP (test code=GAP) 10-20 GLUCOSE (test code=GLU) mg/dL 74-106 BLOOD UREA NITROGEN (test code=BUN) mg/dL 7-18 GLOMERULAR FILTRATION RATE (test code=GFR) mL/min >=60 CREATININE (test code=CREAT) mg/dL 0.7-1.3 BUN/CREATININE RATIO (test code=BUN/CREA) 10-20 CALCIUM (test code=CA) mg/dL 8.5-10.1 CBC W/AUTO [id number] 06:11:00* Test Item Value Reference Range Comments WHITE BLOOD CELL (test code=WBC) 6.6 K/mm3 4.5-12.5 RED BLOOD CELL (test code=RBC) 4.35 mill/mm3 4.0-5.8 HEMOGLOBIN (test code=HGB) 12.4 gram/dL 13.0-17.5 HEMATOCRIT (test code=HCT) 38.7 % 42.0-52.0 MEAN CELL VOLUME (test code=MCV) 89.0 fL 80-98 MEAN CELL HGB (test code=MCH) 28.5 picogram 27.0-33.0 MEAN CELL HGB CONCETRATION (test code=MCHC) 32.0 gram/dL 33.0-36.0 RED CELL DISTRIBUTION WIDTH (test code=RDW) 13.9 % 11.6-16.2 RED CELL DISTRIBUTION WIDTH SD (test code=RDW-SD) 45.1 fL 37.0-51.0 PLATELET COUNT (test code=PLT) 172 K/mm3 150-450 MEAN PLATELET VOLUME (test code=MPV) 9.8 fL 6.7-11.0 NEUTROPHIL % (test code=NT%) 69.4 % 39.0-69.0 IMMATURE GRANULOCYTE % (test code=IG%) 0.3 % 0.0-5.0 LYMPHOCYTE % (test code=LY%) 17.1 % 25.0-55.0 MONOCYTE % (test code=MO%) 7.6 % 0.0-10.0 EOSINOPHIL % (test code=EO%) 5.0 % 0.0-5.0 BASOPHIL % (test code=BA%) 0.6 % 0.0-1.0 NUCLEATED RBC % (test code=NRBC%) 0.0 % 0-0 NEUTROPHIL # (test code=NT#) 4.58 K/mm3 1.8-7.7 IMMATURE GRANULOCYTE # (test code=IG#) 0.02 x10 3/uL 0-0.03 LYMPHOCYTE # (test code=LY#) 1.13 K/mm3 1.0-5.0 MONOCYTE # (test code=MO#) 0.50 K/mm3 0-0.8 EOSINOPHIL # (test code=EO#) 0.33 K/mm3 0.0-0.5 BASOPHIL # (test code=BA#) 0.04 K/mm3 0.0-0.2 NUCLEATED RBC # (test code=NRBC#) 0.00 K/mm3 0.0-0.1 BASIC METABOLIC [id number] 05:46:00* Test Item Value Reference Range Comments SODIUM (test code=NA) 136 mmol/L 136-145 POTASSIUM (test code=K) 3.5 mmol/L 3.5-5.1 CHLORIDE (test code=CL) 96.0 mmol/L 98-107 CARBON DIOXIDE (test code=CO2) 35.0 mmol/L 21-32 ANION GAP (test code=GAP) 8.5 10-20 GLUCOSE (test code=GLU) 82 mg/dL 74-106 BLOOD UREA NITROGEN (test code=BUN) 20 mg/dL 7-18 GLOMERULAR FILTRATION RATE (test code=GFR) > 60 mL/min >=60 Estimated GFR by using Modified MDRD formula.Chronic kidney disease is defined as either kidney damageor GFR <60 mL/min/1.73 m2 for >3 months. CREATININE (test code=CREAT) 1.10 mg/dL 0.7-1.3 BUN/CREATININE RATIO (test code=BUN/CREA) 18.2 10-20 CALCIUM (test code=CA) 8.9 mg/dL 8.5-10.1 BASIC METABOLIC [id number] 05:39:00* Test Item Value Reference Range Comments SODIUM (test code=NA) 136 mmol/L 136-145 POTASSIUM (test code=K) 3.5 mmol/L 3.5-5.1 CHLORIDE (test code=CL) 96.0 mmol/L 98-107 CARBON DIOXIDE (test code=CO2) mmol/L 21-32 ANION GAP (test code=GAP) 10-20 GLUCOSE (test code=GLU) mg/dL 74-106 BLOOD UREA NITROGEN (test code=BUN) mg/dL 7-18 GLOMERULAR FILTRATION RATE (test code=GFR) mL/min >=60 CREATININE (test code=CREAT) mg/dL 0.7-1.3 BUN/CREATININE RATIO (test code=BUN/CREA) 10-20 CALCIUM (test code=CA) mg/dL 8.5-10.1 CBC W/AUTO [id number] 05:17:00* Test Item Value Reference Range Comments WHITE BLOOD CELL (test code=WBC) 6.1 K/mm3 4.5-12.5 RED BLOOD CELL (test code=RBC) 4.37 mill/mm3 4.0-5.8 HEMOGLOBIN (test code=HGB) 12.2 gram/dL 13.0-17.5 HEMATOCRIT (test code=HCT) 38.7 % 42.0-52.0 MEAN CELL VOLUME (test code=MCV) 88.6 fL 80-98 MEAN CELL HGB (test code=MCH) 27.9 picogram 27.0-33.0 MEAN CELL HGB CONCETRATION (test code=MCHC) 31.5 gram/dL 33.0-36.0 RED CELL DISTRIBUTION WIDTH (test code=RDW) 13.9 % 11.6-16.2 RED CELL DISTRIBUTION WIDTH SD (test code=RDW-SD) 45.2 fL 37.0-51.0 PLATELET COUNT (test code=PLT) 158 K/mm3 150-450 MEAN PLATELET VOLUME (test code=MPV) 9.5 fL 6.7-11.0 NEUTROPHIL % (test code=NT%) 68.1 % 39.0-69.0 IMMATURE GRANULOCYTE % (test code=IG%) 0.3 % 0.0-5.0 LYMPHOCYTE % (test code=LY%) 17.7 % 25.0-55.0 MONOCYTE % (test code=MO%) 8.3 % 0.0-10.0 EOSINOPHIL % (test code=EO%) 4.9 % 0.0-5.0 BASOPHIL % (test code=BA%) 0.7 % 0.0-1.0 NUCLEATED RBC % (test code=NRBC%) 0.0 % 0-0 NEUTROPHIL # (test code=NT#) 4.16 K/mm3 1.8-7.7 IMMATURE GRANULOCYTE # (test code=IG#) 0.02 x10 3/uL 0-0.03 LYMPHOCYTE # (test code=LY#) 1.08 K/mm3 1.0-5.0 MONOCYTE # (test code=MO#) 0.51 K/mm3 0-0.8 EOSINOPHIL # (test code=EO#) 0.30 K/mm3 0.0-0.5 BASOPHIL # (test code=BA#) 0.04 K/mm3 0.0-0.2 NUCLEATED RBC # (test code=NRBC#) 0.00 K/mm3 0.0-0.1 BASIC METABOLIC [id number] 06:43:00* Test Item Value Reference Range Comments SODIUM (test code=NA) 137 mmol/L 136-145 POTASSIUM (test code=K) 3.7 mmol/L 3.5-5.1 CHLORIDE (test code=CL) 97.0 mmol/L 98-107 CARBON DIOXIDE (test code=CO2) 35.0 mmol/L 21-32 ANION GAP (test code=GAP) 8.7 10-20 GLUCOSE (test code=GLU) 87 mg/dL 74-106 BLOOD UREA NITROGEN (test code=BUN) 20 mg/dL 7-18 GLOMERULAR FILTRATION RATE (test code=GFR) > 60 mL/min >=60 Estimated GFR by using Modified MDRD formula.Chronic kidney disease is defined as either kidney damageor GFR <60 mL/min/1.73 m2 for >3 months. CREATININE (test code=CREAT) 1.20 mg/dL 0.7-1.3 BUN/CREATININE RATIO (test code=BUN/CREA) 16.7 10-20 CALCIUM (test code=CA) 9.1 mg/dL 8.5-10.1 BASIC METABOLIC [id number] 06:32:00* Test Item Value Reference Range Comments SODIUM (test code=NA) 137 mmol/L 136-145 POTASSIUM (test code=K) 3.7 mmol/L 3.5-5.1 CHLORIDE (test code=CL) 97.0 mmol/L 98-107 CARBON DIOXIDE (test code=CO2) mmol/L 21-32 ANION GAP (test code=GAP) 10-20 GLUCOSE (test code=GLU) mg/dL 74-106 BLOOD UREA NITROGEN (test code=BUN) mg/dL 7-18 GLOMERULAR FILTRATION RATE (test code=GFR) mL/min >=60 CREATININE (test code=CREAT) mg/dL 0.7-1.3 BUN/CREATININE RATIO (test code=BUN/CREA) 10-20 CALCIUM (test code=CA) mg/dL 8.5-10.1 CBC W/AUTO [id number] 06:00:00* Test Item Value Reference Range Comments WHITE BLOOD CELL (test code=WBC) 6.7 K/mm3 4.5-12.5 RED BLOOD CELL (test code=RBC) 4.48 mill/mm3 4.0-5.8 HEMOGLOBIN (test code=HGB) 12.6 gram/dL 13.0-17.5 HEMATOCRIT (test code=HCT) 41.2 % 42.0-52.0 MEAN CELL VOLUME (test code=MCV) 92.0 fL 80-98 MEAN CELL HGB (test code=MCH) 28.1 picogram 27.0-33.0 MEAN CELL HGB CONCETRATION (test code=MCHC) 30.6 gram/dL 33.0-36.0 RED CELL DISTRIBUTION WIDTH (test code=RDW) 14.1 % 11.6-16.2 RED CELL DISTRIBUTION WIDTH SD (test code=RDW-SD) 47.5 fL 37.0-51.0 PLATELET COUNT (test code=PLT) 175 K/mm3 150-450 MEAN PLATELET VOLUME (test code=MPV) 9.5 fL 6.7-11.0 NEUTROPHIL % (test code=NT%) 69.7 % 39.0-69.0 IMMATURE GRANULOCYTE % (test code=IG%) 0.4 % 0.0-5.0 LYMPHOCYTE % (test code=LY%) 19.2 % 25.0-55.0 MONOCYTE % (test code=MO%) 7.3 % 0.0-10.0 EOSINOPHIL % (test code=EO%) 3.1 % 0.0-5.0 BASOPHIL % (test code=BA%) 0.3 % 0.0-1.0 NUCLEATED RBC % (test code=NRBC%) 0.0 % 0-0 NEUTROPHIL # (test code=NT#) 4.65 K/mm3 1.8-7.7 IMMATURE GRANULOCYTE # (test code=IG#) 0.03 x10 3/uL 0-0.03 LYMPHOCYTE # (test code=LY#) 1.28 K/mm3 1.0-5.0 MONOCYTE # (test code=MO#) 0.49 K/mm3 0-0.8 EOSINOPHIL # (test code=EO#) 0.21 K/mm3 0.0-0.5 BASOPHIL # (test code=BA#) 0.02 K/mm3 0.0-0.2 NUCLEATED RBC # (test code=NRBC#) 0.00 K/mm3 0.0-0.1 - US ABDOMEN [id number] 18:44:00 Name: PATSY BECERRA [facility] : 1955 Age/S: 64 / M [address] [facility] Unit #: [id number] Loc: [place] [address] Phys: Lemuel Dao MD Acct: [id number] Dis Date: Status: ADM IN PHONE #: [phone] Exam Date: 03/31/2019 1833 FAX #: [phone] Reason: RENAL MASS EXAMS: CPT CODE: [id number] US ABDOMEN COMPLETE [id number] REASON FOR EXAM: RENAL MASS EXAM ORDER DATE: 03/31/2019 5:19 PM Attending M.D.: Lemuel Dao MD PROCEDURE: - US ABDOMEN COMPLETE FINDINGS: The liver is unremarkable. A 1.3 cm solid lesion in the left lobe of the liver. The pancreas is within normal limits. The right kidney measures 10.4 x 3.6 cm. The left kidney measures 11.3 x 4.7 cm. There is no evidence of hydronephrosis. There is no evidence of nephrolithiasis. The spleen measures 10.1 cm. The gallbladder is contracted without evidence of gallstone.The common bile duct measures 0.2 cm. There is no evidence of ascites. The aorta and IVC are within normal limits. The portal vein is patent with hepatopetal flow IMPRESSION: 3.4 x 4.7 cm exophytic solid lesion in the inferior pole of the left kidney. 1.3 cm solid lesion in the left lobe of the liver (not seen on the recent CT of the abdomen)) at 1844 Reported and signed by: [place] M.D. CC: Jessica Luz MD; Lemuel Dao MD; Gaurang Denton MD Technologist: Cheng Holley [facility] Date/Time: 03/31/2019 (1843) [email or web address] Orig Print D/T: S: 03/31/2019 (1846) Probe: PAGE 1 Signed Report BASIC METABOLIC [id number] 06:40:00* Test Item Value Reference Range Comments SODIUM (test code=NA) 137 mmol/L 136-145 POTASSIUM (test code=K) 3.6 mmol/L 3.5-5.1 CHLORIDE (test code=CL) 98.0 mmol/L 98-107 CARBON DIOXIDE (test code=CO2) 32.0 mmol/L 21-32 ANION GAP (test code=GAP) 10.6 10-20 GLUCOSE (test code=GLU) 80 mg/dL 74-106 BLOOD UREA NITROGEN (test code=BUN) 15 mg/dL 7-18 GLOMERULAR FILTRATION RATE (test code=GFR) > 60 mL/min >=60 Estimated GFR by using Modified MDRD formula.Chronic kidney disease is defined as either kidney damageor GFR <60 mL/min/1.73 m2 for >3 months. CREATININE (test code=CREAT) 1.00 mg/dL 0.7-1.3 BUN/CREATININE RATIO (test code=BUN/CREA) 14.4 10-20 CALCIUM (test code=CA) 8.7 mg/dL 8.5-10.1 BASIC METABOLIC [id number] 06:25:00* Test Item Value Reference Range Comments SODIUM (test code=NA) 137 mmol/L 136-145 POTASSIUM (test code=K) 3.6 mmol/L 3.5-5.1 CHLORIDE (test code=CL) 98.0 mmol/L 98-107 CARBON DIOXIDE (test code=CO2) mmol/L 21-32 ANION GAP (test code=GAP) 10-20 GLUCOSE (test code=GLU) mg/dL 74-106 BLOOD UREA NITROGEN (test code=BUN) mg/dL 7-18 GLOMERULAR FILTRATION RATE (test code=GFR) mL/min >=60 CREATININE (test code=CREAT) mg/dL 0.7-1.3 BUN/CREATININE RATIO (test code=BUN/CREA) 10-20 CALCIUM (test code=CA) mg/dL 8.5-10.1 CBC W/AUTO [id number] 06:18:00* Test Item Value Reference Range Comments WHITE BLOOD CELL (test code=WBC) 7.0 K/mm3 4.5-12.5 RED BLOOD CELL (test code=RBC) 4.26 mill/mm3 4.0-5.8 HEMOGLOBIN (test code=HGB) 12.1 gram/dL 13.0-17.5 HEMATOCRIT (test code=HCT) 38.8 % 42.0-52.0 MEAN CELL VOLUME (test code=MCV) 91.1 fL 80-98 MEAN CELL HGB (test code=MCH) 28.4 picogram 27.0-33.0 MEAN CELL HGB CONCETRATION (test code=MCHC) 31.2 gram/dL 33.0-36.0 RED CELL DISTRIBUTION WIDTH (test code=RDW) 14.1 % 11.6-16.2 RED CELL DISTRIBUTION WIDTH SD (test code=RDW-SD) 46.7 fL 37.0-51.0 PLATELET COUNT (test code=PLT) 177 K/mm3 150-450 MEAN PLATELET VOLUME (test code=MPV) 9.3 fL 6.7-11.0 NEUTROPHIL % (test code=NT%) 72.2 % 39.0-69.0 IMMATURE GRANULOCYTE % (test code=IG%) 0.4 % 0.0-5.0 LYMPHOCYTE % (test code=LY%) 14.4 % 25.0-55.0 MONOCYTE % (test code=MO%) 9.4 % 0.0-10.0 EOSINOPHIL % (test code=EO%) 3.2 % 0.0-5.0 BASOPHIL % (test code=BA%) 0.4 % 0.0-1.0 NUCLEATED RBC % (test code=NRBC%) 0.0 % 0-0 NEUTROPHIL # (test code=NT#) 5.02 K/mm3 1.8-7.7 IMMATURE GRANULOCYTE # (test code=IG#) 0.03 x10 3/uL 0-0.03 LYMPHOCYTE # (test code=LY#) 1.00 K/mm3 1.0-5.0 MONOCYTE # (test code=MO#) 0.65 K/mm3 0-0.8 EOSINOPHIL # (test code=EO#) 0.22 K/mm3 0.0-0.5 BASOPHIL # (test code=BA#) 0.03 K/mm3 0.0-0.2 NUCLEATED RBC # (test code=NRBC#) 0.00 K/mm3 0.0-0.1 AG [id number] 19:38:00* Test Item Value Reference Range Comments AG CARCINOEMBRYONIC (test code=CEA) 87.5 ng/mL 0.0-3.0 "HEALTHY" SMOKERS CAN HAVE CEA VALUES UP TO 5 NG/ML. BENIGNDISORDERS SELDOM ELEVATE THE SERUM CEA LEVEL ABOVE 10 NG/ML. CPK-MB [id number] 12:08:00* Test Item Value Reference Range Comments CREATINE KINASE (CK) (test code=CK) 45 IUnit/L 26-208 CKMB (test code=CKMBT) 2.6 ng/mL 0-6.0 RELATIVE % INDEX (test code=REL%) 5.78 % 0.00-2.50 "If the total CK is elevated, the CKMB Fraction must beinterpreted as a Relative % Index, Normal is less than 2.5%"NOTE: Relative % Index is not valid with a normal total CK. [id number] 04:10:00* Test Item Value Reference Range Comments TROPONIN-I (test code=TROPI) 0.540 ng/mL 0-0.045 RESULT VERIFIED BY REPEAT ANALYSIS COMMENTS TO OVERHAULER BUS TRUCK: COLLECT 3 HOURS AFTER PREVIOUS SAMPLEBASIC METABOLIC [id number] 03:44:00* Test Item Value Reference Range Comments SODIUM (test code=NA) 134 mmol/L 136-145 POTASSIUM (test code=K) 3.8 mmol/L 3.5-5.1 CHLORIDE (test code=CL) 96.0 mmol/L 98-107 CARBON DIOXIDE (test code=CO2) 31.0 mmol/L 21-32 ANION GAP (test code=GAP) 10.8 10-20 GLUCOSE (test code=GLU) 99 mg/dL 74-106 BLOOD UREA NITROGEN (test code=BUN) 15 mg/dL 7-18 GLOMERULAR FILTRATION RATE (test code=GFR) > 60 mL/min >=60 Estimated GFR by using Modified MDRD formula.Chronic kidney disease is defined as either kidney damageor GFR <60 mL/min/1.73 m2 for >3 months. CREATININE (test code=CREAT) 1.00 mg/dL 0.7-1.3 BUN/CREATININE RATIO (test code=BUN/CREA) 14.6 10-20 CALCIUM (test code=CA) 8.8 mg/dL 8.5-10.1 LIPID PROFILE (CORONARY RISK)2019-03-30 03:43:00* Test Item Value Reference Range Comments TRIGLYCERIDES (test code=TRIG) 61 mg/dL 20-150 CHOLESTEROL (test code=CHOL) 109 mg/dL 0-200 CHOLESTEROL/HDL RATIO (test code=CHOLHDL) 2.0 RATIO 0-4.9 RISK ASSOCIATED WITH CHOL/HDL RATIOS: Risk Male Female1/2 AVERAGE 3.43 3.27AVERAGE 4.97 4.442X AVERAGE 9.55 7.053X AVERAGE 23.39 11.04 REFERENCE VALUE IS RELATED TO RISK LEVELS ASRECOMMENDED BY THE [facility]. HEART, LUNG, AND BLOOD INST. HDL CHOLESTEROL (test code=HDL) 37 mg/dL 40-60 LIPOPROTEIN LDL (test code=LDL) 67 mg/dL 100-129 Reference Interval: mg/dL mmol/L Optimal <100 <2.6Near/above optimal 100-129 2.6- 3.3Borderline High 130-159 3.4-4.1High 160-189 4.1-4.9Very High >=190 >=4.9=========This LDL result is a direct measurement.========= BASIC METABOLIC [id number] 03:28:00* Test Item Value Reference Range Comments SODIUM (test code=NA) 134 mmol/L 136-145 POTASSIUM (test code=K) 3.8 mmol/L 3.5-5.1 CHLORIDE (test code=CL) 96.0 mmol/L 98-107 CARBON DIOXIDE (test code=CO2) mmol/L 21-32 ANION GAP (test code=GAP) 10-20 GLUCOSE (test code=GLU) mg/dL 74-106 BLOOD UREA NITROGEN (test code=BUN) mg/dL 7-18 GLOMERULAR FILTRATION RATE (test code=GFR) mL/min >=60 CREATININE (test code=CREAT) mg/dL 0.7-1.3 BUN/CREATININE RATIO (test code=BUN/CREA) 10-20 CALCIUM (test code=CA) mg/dL 8.5-10.1 CBC W/AUTO [id number] 03:24:00* Test Item Value Reference Range Comments WHITE BLOOD CELL (test code=WBC) 7.6 K/mm3 4.5-12.5 RED BLOOD CELL (test code=RBC) 4.56 mill/mm3 4.0-5.8 HEMOGLOBIN (test code=HGB) 12.8 gram/dL 13.0-17.5 HEMATOCRIT (test code=HCT) 40.8 % 42.0-52.0 MEAN CELL VOLUME (test code=MCV) 89.5 fL 80-98 MEAN CELL HGB (test code=MCH) 28.1 picogram 27.0-33.0 MEAN CELL HGB CONCETRATION (test code=MCHC) 31.4 gram/dL 33.0-36.0 RED CELL DISTRIBUTION WIDTH (test code=RDW) 14.3 % 11.6-16.2 RED CELL DISTRIBUTION WIDTH SD (test code=RDW-SD) 46.2 fL 37.0-51.0 PLATELET COUNT (test code=PLT) 183 K/mm3 150-450 MEAN PLATELET VOLUME (test code=MPV) 9.3 fL 6.7-11.0 NEUTROPHIL % (test code=NT%) 69.6 % 39.0-69.0 IMMATURE GRANULOCYTE % (test code=IG%) 0.4 % 0.0-5.0 LYMPHOCYTE % (test code=LY%) 16.2 % 25.0-55.0 MONOCYTE % (test code=MO%) 8.9 % 0.0-10.0 EOSINOPHIL % (test code=EO%) 4.5 % 0.0-5.0 BASOPHIL % (test code=BA%) 0.4 % 0.0-1.0 NUCLEATED RBC % (test code=NRBC%) 0.0 % 0-0 NEUTROPHIL # (test code=NT#) 5.29 K/mm3 1.8-7.7 IMMATURE GRANULOCYTE # (test code=IG#) 0.03 x10 3/uL 0-0.03 LYMPHOCYTE # (test code=LY#) 1.23 K/mm3 1.0-5.0 MONOCYTE # (test code=MO#) 0.68 K/mm3 0-0.8 EOSINOPHIL # (test code=EO#) 0.34 K/mm3 0.0-0.5 BASOPHIL # (test code=BA#) 0.03 K/mm3 0.0-0.2 NUCLEATED RBC # (test code=NRBC#) 0.00 K/mm3 0.0-0.1 MANUAL DIFF REQUIRED (test code=MDIFF) NO [id number] 22:57:00* Test Item Value Reference Range Comments TROPONIN-I (test code=TROPI) 0.493 ng/mL 0-0.045 RESULT VERIFIED BY REPEAT ANALYSIS COMMENTS TO OVERHAULER BUS TRUCK: COLLECT 3 HOURS AFTER PREVIOUS SAMPLELACTIC [id number] 22:56:00* Test Item Value Reference Range Comments LACTIC ACID (test code=LACT) 1.4 mmol/L 0.4-1.9 LACTIC [id number] 19:10:00* Test Item Value Reference Range Comments LACTIC ACID (test code=LACT) 2.4 mmol/L 0.4-1.[address] NIÑO by ALISSON 03/29/191909Critical results verified and read back by Nurse? Y - US SCROTUM AND [id number] 18:31:00 Name: PATSY BECERRA [facility] : 1955 Age/S: 64 / M [address] [facility] Unit #: [id number] Loc: [place] [address] Phys: Dany Goodman MD Acct: [id number] Dis Date: Status: ADM IN PHONE #: [phone] Exam Date: 03/29/2019 1809 FAX #: [phone] Reason: scrotal swelling EXAMS: CPT CODE: [id number] US SCROTUM AND CNTS 61530 REASON FOR EXAM: scrotal swelling EXAM ORDER DATE: 03/29/2019 5:13 PM Attending Brice: Dany Goodman MD PROCEDURE: - US SCROTUM AND CNTS FINDINGS: The right testicle measures 3.6 x 2.6 cm. The left testicle measures 3.8 x 2.4 cm. No evidence of testicular mass. No evidence of abscess. Unremarkable testicular flow is seen. Duplex scans of the testicular arteries were performed. Mccall scale images were supplemented with color-flow Doppler. Doppler flow velocity analysis (duplex Doppler) was performed The right epididymis measures 1.3 x 0.8 cm. The left epididymis measures 1.3 x 1.1 cm. No evidence of varicoceles. IMPRESSION: Heterogeneous and complex left epididymis suggestive of epididymitis. Small bilateral hydroceles. Mild subcutaneous edema of the scrotal sac at 1831 Reported and signed by: New Humphrey M.D. CC: Dany Goodman MD; Gaurang Denton MD Technologist: Cheng Holley Trnscb Date/Time: 03/20 (183) [email or web address] Orig Print D/T: S: 03/29/2019 (18 34) Probe: PAGE 1 Signed Report - CT ABD PELVIS [id number] 17:49:00 Name: PATSY BECERRA [facility] : 1955 Age/S: 64 / M [address] Unit #: [id number] Loc: [place] [address] Phys: David Goodman MD Acct: [id number] Di s Date: Status: ADM IN PHONE #: Exam Date: 03/29/2019 1731 FAX #: Reason: abd distension EXAMS: CPT CODE: [id number] CT ABD PELVIS W/CONT 15159 REASON FOR EXAM: abd distension EXAM ORDER DATE: 03/29/2019 4:50 PM Or rey Narvaez: Dany Goodman MD PROCEDURE: - CT ABD PELVIS W/CONT COMPARISON: FINDINGS: CT images of the abdomen and pe lvis were obtained with IV and without oral contrast at 5mm. Dose modulati on, iterative reconstruction, and/or weight based adjustment of the MA/KV was utilized to reduce the radiation dose to as low as reasonably ac hievable. Intravenous contrast: 100cc of Omnipaque 370. The liver, spleen, pancreas are grossly within normal limits. The ga llbladder is unremarkable by CT The right kidney is unremarkable. 5 cm solid mass in the inferior pole of the left kidney. The urinary blad osmar is partially collapsed with moderate thickening of the wall and a Fole y catheter present The colon, small bowel, and stomach are within normal limits without evidence of obstruction. The appendix is not seen No evidence of free air . The osseous structures are grossly unremarkable without evidence of osseous metastases. Severe atherosclerot ic disease of the abdominal aorta and iliac arteries IMPRESSION: 5 cm exophytic mass in the inferior pole of the left kidney suggestive of renal cell carcinoma. Minimal free fluid in the pelvis. Moderate thi ckening of the wall of the urinary bladder, cannot rule out tumor infilt rating the urinary bladder wall. Recommend correlation with cystoscopy. Small left pleural effusion. Electronically Signed by Brice Rice 03/29/2019 at 1627 Reported and signed by: Juvencio Hubbard PAGE 1 Signed Report (CONTIN UED) Name: PATSY BECERRA [facility] : 1955 Age/S: 64 / M [address] [facility] Unit #: [id number] Loc: [place] [address] Phys: Dany Cabrera MD Acct: [id number] Dis Date: Status: ADM IN PHONE #: [phone] Exam Date: 03/29/2019 173 FAX #: Reason: abd distension EXAMS: CPT CODE: [id number] CT ABD P SOFIE W/CONT 77387 <Continued> CC: Dany Goodman MD; Gaurang Denton MD Technologist:Micki Killian RT(R); AIMEE Hurt CTDI: DLP: Trnscb Date/Time: 03/29/2019 (8377) [email or web address].VTL Orig Print D/T: S: 03/29/2019 (2290) PAGE 2 Signed Report - CT CHEST [id number] 17:45:00 [facility] 1955 Age/S: 64 / M [address] [facility] Unit #: [id number] Loc: [place] [address] Phys: Dany Goodman MD Acct: [id number] Dis Date: Status: ADM IN PHONE #: [phone] Exam Date: 03/29/2019 173 FAX #: [phone] Reason: shortness of breath, abnml cxr EXAMS: CPT CODE: [id number] CT CHEST W/CONTRAST 55695 REASON FOR EXAM: shortness of breath, abnml cxr EXAM ORDER DATE: 03/29/2019 4:50 PM Ordering M.Karime: Dany Goodman MD PROCEDURE: - CT CHEST W/CONTRAST FINDINGS: CT images of the chest were obtained with IV contrast. Reconstructed sagittal and coronal images of the chest were provided for interpretation. Dose modulation, iterative reconstruction, and/or weight based adjustment of the MA/KV was utilized to reduce the radiation dose to as low as reasonably achievable. Intravenous contrast: 100cc of Omnipaque 370. The heart size is minimally enlarged. No evidence of pericardial effusion The thoracic aorta is unremarkable. No evidence of dissection or aneurysmal dilatation. No filling defect seen within the main or lobar pulmonary arteries to suggest pulmonary embolus. No evidence of mediastinal or hilar adenopathy. 3 cm mass in the periphery of the left upper lobe adjacent to the lateral pleural s urface. No evidence of pleural effusion IMPRESSION: Hyperinflate d lungs. Minimal cardiomegaly. 3 cm left upper lobe mass suggestive of m alignancy. at 17 45 Reported and signed by: New Humphrey M.D. CC: Dany Ball MD; Gaurang Denton MD Technologist:Mikci gutiérrez RT(R); AIMEE Hurt CTDI: DLP: Trnscb Date/Time: 03/29/2019 (2697) [email or web address] Orig Print D/T: S: 03/29/2019 (4743) PAGE 1 Signed Report PROCALCITONIN (PCT)2019-03-29 17:21:00* Test Item Value Reference Range Comments PROCALCITONIN (PCT) (test code=PROCAL) 0.09 ng/ml Concentration Interpretation (ng/mL) <0.51 Sepsis is not likely. Local bacterial infection is possible. (LOW RISK for progression to Sepsis) 0.51 - 2.00 Sepsis is possible, but other conditions are known to elevate PCT as well. (MODERATE RISK for progression to Sepsis) > 2.00 Sepsis is likely, unless other causes are known. (HIGH RISK for progression to Severe Sepsis or Septic Shock) 10.00 High likelihood of Severe Sepsis or Septic or higher Shock. *Increased PCT levels may not always be related to systemic bacterial infection.*Low PCT levels do not automatically exclude the presence of bacterial infection.*All results should be interpreted taking into account the patients history. BASIC METABOLIC [id number] 16:54:00* Test Item Value Reference Range Comments SODIUM (test code=NA) 131 mmol/L 136-145 POTASSIUM (test code=K) 4.2 mmol/L 3.5-5.1 CHLORIDE (test code=CL) 92.0 mmol/L 98-107 CARBON DIOXIDE (test code=CO2) 29.0 mmol/L 21-32 ANION GAP (test code=GAP) 14.2 10-20 GLUCOSE (test code=GLU) 131 mg/dL 74-106 BLOOD UREA NITROGEN (test code=BUN) 16 mg/dL 7-18 GLOMERULAR FILTRATION RATE (test code=GFR) > 60 mL/min >=60 Estimated GFR by using Modified MDRD formula.Chronic kidney disease is defined as either kidney damageor GFR <60 mL/min/1.73 m2 for >3 months. CREATININE (test code=CREAT) 1.20 mg/dL 0.7-1.3 BUN/CREATININE RATIO (test code=BUN/CREA) 13.2 10-20 CALCIUM (test code=CA) 9.5 mg/dL 8.5-10.1 HEPATIC FUNCTION [id number] 16:54:00* Test Item Value Reference Range Comments TOTAL PROTEIN (test code=PROT) 7.1 gram/dL 6.4-8.2 ALBUMIN (test code=ALB) 3.5 g/dL 3.4-5.0 GLOBULIN (test code=GLOB) 3.6 gram/dL 2.7-4.2 ALBUMIN/GLOBULIN RATIO (test code=A/G) 1.0 0.75-1.50 BILIRUBIN TOTAL (test code=BILT) 1.30 mg/dL 0.0-1.0 BILIRUBIN DIRECT (test code=BILD) 0.61 mg/dL 0.0-0.20 SGOT/AST (test code=AST) 17 IUnit/L 15-37 SGPT/ALT (test code=ALT) 21 IUnit/L 12-78 ALKALINE PHOSPHATASE TOTAL (test code=ALKP) 201 IUnit/L 45-117 Note change in reference range due to change in reagent. [id number] 16:54:00* Test Item Value Reference Range Comments TROPONIN-I (test code=TROPI) 0.525 ng/mL 0-0.045 Results called to [id number] by [facility] 03/29/19 1653Critical results verified and read back by Nurse? Y B-TYPE NATRIURETIC [id number] 16:47:00* Test Item Value Reference Range Comments B-TYPE NATRIURETIC PEPTIDE (test code=BNP) 1589.34 pgram/mL 0-100 LACTIC [id number] 16:45:00* Test Item Value Reference Range Comments LACTIC ACID (test code=LACT) 2.4 mmol/L 0.4-1.9 Results called to [id number] by [facility] 03/29/19 1644Critical results verified and read back by Nurse? Y BASIC METABOLIC [id number] 16:36:00* Test Item Value Reference Range Comments SODIUM (test code=NA) 131 mmol/L 136-145 POTASSIUM (test code=K) 4.2 mmol/L 3.5-5.1 CHLORIDE (test code=CL) 92.0 mmol/L 98-107 CARBON DIOXIDE (test code=CO2) mmol/L 21-32 ANION GAP (test code=GAP) 10-20 GLUCOSE (test code=GLU) mg/dL 74-106 BLOOD UREA NITROGEN (test code=BUN) mg/dL 7-18 GLOMERULAR FILTRATION RATE (test code=GFR) mL/min >=60 CREATININE (test code=CREAT) mg/dL 0.7-1.3 BUN/CREATININE RATIO (test code=BUN/CREA) 10-20 CALCIUM (test code=CA) mg/dL 8.5-10.1 HEPATIC FUNCTION [id number] 16:36:00* Test Item Value Reference Range Comments TOTAL PROTEIN (test code=PROT) gram/dL 6.4-8.2 ALBUMIN (test code=ALB) g/dL 3.4-5.0 GLOBULIN (test code=GLOB) gram/dL 2.7-4.2 ALBUMIN/GLOBULIN RATIO (test code=A/G) 0.75-1.50 BILIRUBIN TOTAL (test code=BILT) mg/dL 0.0-1.0 BILIRUBIN DIRECT (test code=BILD) mg/dL 0.0-0.20 SGOT/AST (test code=AST) IUnit/L 15-37 SGPT/ALT (test code=ALT) IUnit/L 12-78 ALKALINE PHOSPHATASE TOTAL (test code=ALKP) IUnit/L 45-117 [id number] 16:36:00* Test Item Value Reference Range Comments TROPONIN-I (test code=TROPI) ng/mL 0-0.045 - XR CHEST 1 [id number] 16:23:00 FAX: Dany Goodman MD [phone] [place]: [address] St: REG FAX: Gaurang Castorena MD [phone] Name: PATSY BECERRA [facility] : 1955 Age/S: 64/M [address] Unit #: [id number] Loc: [place] [address] Phys: Dany Goodman MD Acct: [id number] Dis Date: Status: REG ER PHONE #: [phone] Exam Date: 03/29/2019 1618 FAX #: [phone] Reason: Shortness of Breath EXAMS: CPT CODE: [id number] XR CHEST 1 V 67925 TECHNIQUE - XR CHEST 1 V . COMPARISON: Chest x-ray 02/16/2018 HISTORY: 64 years Male Shortness of Breath FINDINGS: 2.5 cm mass left midlung field. Neoplastic process suggested. Recommend CT chest. Follow-up is advised. No pneumothorax. No congestion. Lungs are hyperinflated. Cardiac silhouette is prominent. Median sternotomy. IMPRESSION: 2.5 cm mass left midlung field. Neoplastic process suggested. Recommend CT chest. Follow-up is advised. at 1193 Reported and signed by: Franck Romo M.D. CC: Dany Goodman MD; Gaurang Denton MD Technologist: JENNIFER SOUZA; Sana Crane RT(R) Trnscrd Date/Time/By: 03/29/2019 (9257) : By: DahliaARPAN Orig Print D/T: S: 03/29/2019 (3565) PAGE 1 Signed Report CBC W/O [id number] 16:22:00* Test Item Value Reference Range Comments WHITE BLOOD CELL (test code=WBC) 8.0 K/mm3 4.5-12.5 RED BLOOD CELL (test code=RBC) 5.00 mill/mm3 4.0-5.8 HEMOGLOBIN (test code=HGB) 14.2 gram/dL 13.0-17.5 HEMATOCRIT (test code=HCT) 45.0 % 42.0-52.0 MEAN CELL VOLUME (test code=MCV) 90.0 fL 80-98 MEAN CELL HGB (test code=MCH) 28.4 picogram 27.0-33.0 MEAN CELL HGB CONCETRATION (test code=MCHC) 31.6 gram/dL 33.0-36.0 RED CELL DISTRIBUTION WIDTH (test code=RDW) 14.1 % 11.6-16.2 PLATELET COUNT (test code=PLT) 196 K/mm3 150-450 MEAN PLATELET VOLUME (test code=MPV) 9.1 fL 6.7-11.0 CBC W/O [id number] 16:15:00* Test Item Value Reference Range Comments WHITE BLOOD CELL (test code=WBC) K/mm3 4.5-12.5 RED BLOOD CELL (test code=RBC) mill/mm3 4.0-5.8 HEMOGLOBIN (test code=HGB) 14.2 gram/dL 13.0-17.5 HEMATOCRIT (test code=HCT) 45.0 % 42.0-52.0 MEAN CELL VOLUME (test code=MCV) fL 80-98 MEAN CELL HGB (test code=MCH) picogram 27.0-33.0 MEAN CELL HGB CONCETRATION (test code=MCHC) gram/dL 33.0-36.0 RED CELL DISTRIBUTION WIDTH (test code=RDW) % 11.6-16.2 PLATELET COUNT (test code=PLT) K/mm3 150-450 MEAN PLATELET VOLUME (test code=MPV) fL 6.7-11.0 POC LACTIC [id number] 16:13:00* Test Item Value Reference Range Comments POC LACTIC ACID (test code=POCLAC) 2.14 MMOL/L 0.4-2.2
--- OUTSIDE RECORDS SUMMARY | 2019-07-17 19:53 | XMS REPORT | Encounter Summary ---
Author Organization Unknown Address [address] [place] [address] Phone [phone] Care Team Providers Care Quality Assurance Auditor Name Role Phone Dr. Cirilo Pickering 3 [phone] Reason for Visit lab only visit Instructions 1. Benign hypertensive heart disease without congestive heart failure BMP, serum or plasma Discussion Note: None recorded. Patient educational handouts: No information available. Plan of Care Reminders Provider Appointments Est Patient 03/29/2019 2:00PM Cirilo Pickering MD Lab BMP, Serum or Plasma 03/21/2019 [facility] Laboratory Referral None recorded. Procedures None [...] oral route. Medications Administered None recorded. Vitals None recorded. Lab Results Date Name Specimen Result Interpretation Description Value Range Status Address 03/07/2019 Fecal Occult Blood, Stool Fecal Globin by Immunochemistry not detected Final [facility] Laboratory: [address] [address], [place] 03/02/2019 Spirometry Testing Spirometry: PRE [facility] ([facility]) [place]: [address] [place] [address] Fev1: [facility] ([facility]) [place]: [address] [place] [address] Fvc: [facility] ([facility]) [place]: [address] [place] [address] Restriction: [facility] ([facility]) [place]: [address] [place] [address] Obstruction: VERY SEVERE (FEV1 <30% of predicted or <50 with Cor Pulmonale) [facility] ([facility]) [place]: [address] [place] [address] Notes: [facility] ([facility]) [place]: [address] [place] [address] 03/01/2019 CBC W/ Auto Diff High Wbc 9.65 x10*3/L 4.23-9.07 x10*3/L Final [facility]: [address] [place] Rbc 4.81 10*12/L 4.63-6.08 10*12/L Final [facility] [address] [facility] Hemoglobin 13.80 g/dL 13.70-17.50 g/dL Final [facility]: [address] [place] Hematocrit 42.8 % 40.1-51.0 % Final [facility]: [address] [place] Mcv 89.0 fL 80.0-100.0 fL Final [facility]: [address] [place] Mch 28.7 pg 25.7-32.2 pg Final [facility]: [address] [place] Low Mchc 32.2 g/dL 32.3-36.5 g/dL Final [facility]: [address] [facility] RDW-SD 44.3 fL 35.1-43.9 fL Final [facility]: [address] [facility] Platelet Count 222.0 k/uL 163.0-337.0 k/uL Final [facility]: [address] [place] Mpv 10.6 fL 7.5-11.5 fL Final [facility]: [address] [place] High Neut% 77.2 % 34.0-67.9 % Final [facility]: [address] [place] Low Lymph% 11.7 % 21.8-53.1 % Final [facility]: [address] [facility] Mon% 8.4 % 5.3-12.2 % Final [facility]: [address] [facility] Eos% 2.4 % 0.8-7.0 % Final [facility]: [address], [place] Baso% 0.3 % 0.2-1.2 % Final [facility]: [address] [facility] High Neut# 7.5 x10*3/L 1.8-5.4 x10*3/L Final [facility]: [address] [facility] Low Lymph# 1.1 x10*3/L 1.3-3.6 x10*3/L Final [facility]: [address] [facility] Mon# 0.8 x10*3/L 0.3-0.8 x10*3/L Final [facility]: [address] [facility] Eos# 0.23 x10*3/L 0.04-0.54 x10*3/L Final [facility]: [address] [facility] Baso# 0.03 x10*3/L 0.01-0.08 x10*3/L Final [facility]: [address] [facility] 03/01/2019 CMP, Serum or Plasma Alt 13 U/L 0-55 U/L Final [facility]: [address] Ast 15 U/L 5-34 U/L Final [facility]: [address] [place] [address] Bun 12.1 mg/dL 8.4-25.0 mg/dL Final [facility]: [address] [place] [address] Alk Phos 144 unit/L 40-150 unit/L Final [facility]: [address] [place] [address] Glucose 92 mg/dL 70-99 mg/dL Final [facility]: [address] [facility] Albumin 3.9 g/dL 3.4-5.1 g/dL Final [facility]: [address] Creatinine 1.03 mg/dL 0.72-1.25 mg/dL Final [facility]: [address] [address], [place] eGFR Non- >60 mL/min/1.73m2 Final [facility]: [address] High Total Bilirubin 1.3 mg/dL 0.2-1.2 mg/dL Final [facility]: [address] [facility] eGFR - >60 mL/min/1.73m2 Final [facility]: [address] Low Sodium 134 mEq/L 135-145 mEq/L Final [facility]: [address] [address], [place] Potassium 4.5 mEq/L 3.5-5.1 mEq/L Final [facility]: [address] Low Chloride 97 mmol/L 98-110 mmol/L Final [facility]: [address] Total Protein 6.7 g/dL 6.1-8.2 g/dL Final [facility]: [address] [facility] Calcium 10.0 mg/dL 9.0-10.2 mg/dL Final [facility]: [address] Co2 25.2 mmol/L 20.0-32.0 mmol/L Final [facility]: [address] Anion Gap 12 calc Final [facility]: [address] [facility] 03/01/2019 Lipid Panel, Serum Low Hdl 35 mg/dL 40-0 mg/dL Final [facility]: [address] Triglyceride 99 mg/dL 0-150 mg/dL Final [facility]: [address] VLDL (Calculated) 20 mg/dL Final [facility]: [address] cholesterol/HDL Ratio 3.8 mg/dL Final [facility]: [address] non-HDL Cholesterol (Calculated) 98 mg/dL 0-160 mg/dL Final [facility]: [address] Cholesterol 133 mg/dL 0-200 mg/dL Final [facility]: [address] LDL (Calculated) 78 mg/dL 0-130 mg/dL Final [facility]: [address] [address], [place] 03/01/2019 TSH, Serum or Plasma Tsh 0.815 uIU/mL 0.350-4.940 uIU/mL Final [facility]: [address] [address], [place] 03/01/2019 HbA1C (Hemoglobin a1C), Blood High A1C W/eag 6.1 % 1.0-5.7 % Final [facility]: [address] [address], [place] Average Blood Glucose 128 mg/dL Final [facility]: [address] [address], [place] 03/01/2019 Urinalysis, Dipstick Color Color dark yellow [facility] ([facility]) [place]: [address] [place] Color Appearance clear [facility] ([facility]) [place]: [address] [place] Color Glucose negative [facility] ([facility]) [place]: [address] [place] Color Bilirubin negative [facility] ([facility]) [place]: [address] [place] Color Ketones negative [facility] ([facility]) [place]: [address] [place] Color Specific [place] 1.020 [facility] ([facility]) [place]: [address] [place] Color Blood negative [facility] [place]: [address] [place] Color PH 5.5 [facility] [place]: [address] [place] Color Protein negative [facility] ([facility]) [place]: [address] [place] Color Urobilinogen 0.2 [facility] ([facility]) [place]: [address] [place] Color Nitrites negative [facility] ([facility]) [place]: [address] [place] Color Leukocytes negative [facility] ([facility]) [place]: [address] [place] Allergies Code Code System Name Reaction Severity [...] not available 03/01/2019 XR, Chest, 2 View [facility] [place] [address] [place] [address] (Work Place) 03/08/2019 US, Duplex, Venous, Lower Extremity [facility] [place] [address] [place] [address] (Work Place) Vaccine List Vaccine Type pneumococcal polysaccharide PPV23 03/01/20190.5 mL Td(adult) unspecified formulation 09/20/1999 Tdap 03/01/20190.5 mL Social History Smoking Status Heavy Tobacco Smoker (1 PPD) Past Encounters 03/21/2019 Benign Hypertensive Heart Disease without Congestive Heart Failure Weston Meadows MD: [address] [place] [id number], Ph. 03/15/2019 Body Mass Index 25-29 - Overweight; Benign Hypertensive Heart Disease without Congestive Heart Failure; Benign Prostatic Hypertrophy with Outflow Obstruction; Edema of Lower Leg; Severe Chronic Obstructive Pulmonary Disease Cirilo Pickering MD: [address] [place] [address], Ph. 03/08/2019 Body Mass Index 25-29 - Overweight; Screening for Disorder; Benign Prostatic Hypertrophy with Outflow Obstruction; Pain in Lower Limb; Hypertensive Heart Disease with Congestive Heart Failure; Coronary Arteriosclerosis in [place] Artery; Severe Chronic Obstructive Pulmonary Disease Cirilo Pickering MD: [address] [place] [address], Ph. 03/01/2019 Body Mass Index 25-29 - Overweight; Depression Screening Positive; Nicotine Dependence; Coronary Arteriosclerosis in [place] Artery; Severe Chronic Obstructive Pulmonary Disease; Senile Purpura; Edema of Lower Extremity; Adult Health Examination; Immunization; Noncompliance with Treatment; Screening for Malignant Neoplasm of Colon Cirilo Pickering MD: [address] [place] [address], Ph. History of Present Illness None recorded. Review of Systems None recorded. Physical Exam None recorded.
--- NOTE | 2019-07-17 20:32 | Diagnostic Imaging Report ---
A single frontal view of the chest. HISTORY: Wilian the catheter COMPARISON: None available. DISCUSSION: Portable technique, limits sensitivity of the exam. Multiple overlying artifacts. Tubes/Lines: None Lungs and pleura: A nonspecific density projects at the periphery of the left mid to upper lung, measuring up to 4.4 cm in greatest dimension. Otherwise, no evidence of a consolidative pneumonia or pulmonary alveolar edema. No definite pleural effusion or pneumothorax is identified. Heart and mediastinum: The cardiomediastinal silhouette appear(s) unremarkable. Postsurgical changes. Bones and soft tissues: Multiple median sternotomy wires. IMPRESSION: Nonspecific 4.4 cm density projects at the periphery of the left mid to upper lung, recommend routine PA and lateral chest radiographs performed in the Radiology Department when feasible for further evaluation given the portable technique and overlying artifacts. Signed by: Dr. Jeff Palma D.O., M.M.M. on 07/17/2019 8:29 PM
--- NOTE | 2019-07-17 21:25 | NUR ---
Received patient from ER via stretcher. AAOX3, and no resp distress. Has n/c @ 2L. Patient is O2 dependant at home. Arrived to the floor with bradford that was replaced in the ER today. Noted cloudy dark yellow urine with sediments. Denies pain at this time. Call light within reach and instructed to call for assistance. Refused bed alarm. Son at bedside.
[2019-07-17 21:45] VITALS: BP_SYST 122; BP_SYST 96; BP_DIAS 61; BP_DIAS 66
[2019-07-17] MEDS ORDERED: SODIUM CHLORIDE 0.9% 250ML 250 ML ONE (22:07)
[2019-07-17] MEDS: MEROPENEM 1GM 100 ML IV SCH (22:13)
[2019-07-17 22:18] VITALS: BP 122/66
[2019-07-17] MEDS ORDERED: FLOMAX0.4 MG PO (22:23)
[2019-07-17] MEDS ORDERED: ASPIR 8181 MG (22:23)
[2019-07-17] MEDS ORDERED: AMIODARONE HCL100 MG (22:23)
[2019-07-17] MEDS ORDERED: FUROSEMIDE40 MG PO (22:23)
[2019-07-17] MEDS ORDERED: KLOR-CON 1010 MEQ (22:23)
[2019-07-17 22:35] VITALS: BP 122/66
[2019-07-17 23:53] VITALS: BP 125/60
[2019-07-18] VITALS (7 sets, daily range): BP systolic 108–134; BP diastolic 57–67
[2019-07-18] MEDS: MEROPENEM 1GM 100 ML IV SCH ×3 (04:34→20:56)
[2019-07-18 05:27] LABS: BASOPHILS % 0.2 % (0.0-1.0); EOSINOPHILS % 0.3 % (0.0-6.0); HEMATOCRIT 34.8 % (38.2-49.6); HEMOGLOBIN 10.8 g/dL (14.0-18.0); LYMPHOCYTES # (AUTO) 1.4 (1.0-3.2); LYMPHOCYTES % 9.4 % (18.0-39.1); MEAN CORPUSCULAR HEMOGLOBIN 27.6 pg (28-32); MEAN CORPUSCULAR VOLUME 88.8 fL (81-99); MONOCYTES % 6.7 % (4.4-11.3); NEUTROPHILS # (AUTO) 12.4 (2.1-6.9); NEUTROPHILS % 82.9 % (38.7-80.0); PLATELET COUNT 276 x10e3/uL (140-360); RED BLOOD COUNT 3.92 x10e6/uL (4.3-5.7); RED CELL DISTRIBUTION WIDTH 15.2 % (11.7-14.4)
[2019-07-18 05:41] LABS: ALANINE AMINOTRANSFERASE 27 IU/L (0-55); ALBUMIN 2.2 g/dL (3.5-5.0); ALBUMIN/GLOBULIN RATIO 0.7 (0.8-2.0); ALKALINE PHOSPHATASE 330 IU/L (40-150); BLOOD UREA NITROGEN 18 mg/dL (7-26); BUN/CREATININE RATIO 22 (6-25); CALCIUM 9.4 mg/dL (8.4-10.2); CARBON DIOXIDE 34 mmol/L (22-29); CHLORIDE 92 mmol/L (98-107); CREATININE, SERUM 0.83 mg/dL (0.72-1.25); EST GLOMERULAR FILTRATION RATE > 60 ML/MIN (60-); GLUCOSE 85 mg/dL (74-118); SODIUM 136 mmol/L (136-145)
--- NOTE | 2019-07-18 06:23 | NUR ---
Spoke to Dr. Dao regarding urology consult, will see patient today.
--- NOTE | 2019-07-18 07:00 | NUR ---
BEDSIDE SHIFT REPORT RECEIVED FROM THE UNDERWEAR CUTTER RN. PT IS AAOX4. EDUCATED PT ABOUT FALL PRECAUTIONS. CALL LIGHT WITH IN EASY REACH. INSTRUCTED PT TO CALL FOR ANY NEEDS. PT VERBALIZED UNDERSTANDING. BED IS LOW AND LOCKED. SIDE RAILS X2. PT DENIES NEEDS AT THIS TIME.
[2019-07-18] MEDS: TAMSULOSIN HCL 0.4 MG CAP PO SCH (09:03)
[2019-07-18] MEDS: ASPIRIN 81 MG CHEW TAB PO SCH (09:03)
[2019-07-18] MEDS: AMIODARONE HCL 200 MG TAB PO SCH (09:04)
--- NOTE | 2019-07-18 19:00 | NUR ---
BEDSIDE SHIFT REPORT GIVEN TO THE EDGE BONDER RN. PT DENIED FURTHER NEEDS.
--- NOTE | 2019-07-18 23:41 | Consultation ---
DATE OF CONSULTATION: REASON FOR CONSULTATION: Urinary tract infection and sepsis. HISTORY OF PRESENT ILLNESS: This patient is very pleasant 64-year-old white male, who has a problem with urine for the last few months. Apparently, he comes in with catheter been plugged and was not working for the last 2 days. He does have a Hennessy catheter. He also had diarrhea x1. The patient came to the emergency room. In the emergency room, it was found to have an elevated white count. The catheter was changed. There was 2000 mL, I was told and he was admitted. I was concerned there was an infection. The patient is currently lying in bed comfortably. He is telling me there was no fever or chills, but he did have some suprapubic discomfort. The patient who does have history of congestive heart failure, cancer, recurrent UTI, left kidney cancer with apparently lung metastases, coronary artery disease, and history of CABG. SOCIAL HISTORY: There is no smoking, drug abuse, or alcohol abuse. FAMILY HISTORY: Otherwise noncontributory. REVIEW OF SYSTEMS: HEENT: Negative. PULMONARY: Negative. CARDIAC: Negative. At present time, he is feeling much better as mentioned above. All symptoms within normal limits at present time. LABORATORY DATA: Reviewed. Urine cultures still pending. White count on admission was 21, came down to 14.9, hemoglobin of 10.8. Sodium 136, potassium 4, and creatinine 0.83. MEDICATIONS: He is currently on meropenem. PHYSICAL EXAMINATION: GENERAL: He is currently alert and oriented, does not seem to be in acute distress. VITAL SIGNS: Stable, currently afebrile. HEENT: He is not icteric. NECK: Supple. CHEST: Clear. HEART: S1 and S2. No S3, S4, or murmur. ABDOMEN: Soft. Bowel sounds present. EXTREMITIES: No edema. IMPRESSION: Urinary tract infection, sepsis on admission secondary to urinary tract obstruction, secondary to catheter plugged, status post replacement. Agree with meropenem. Agree with IV fluid. Recheck urine cultures results. Check blood culture results. Discussed with the patient. Continue supportive care. other medical problems as above. MD LUNA Walker/ODILIA /[id number]
[2019-07-19] VITALS (7 sets, daily range): BP systolic 106–128; BP diastolic 58–74
--- NOTE | 2019-07-19 02:10 | NUR ---
Patient received sitting up in bed. AAO x 3. Patient had no complaints of pain. Respirations even and non-labored. Hennessy catheter draining dark sonya urine. Fall precautions implemented. Patient instructed to call for assistance when needed. Call light within reach.
[2019-07-19] MEDS: MEROPENEM 1GM 100 ML IV SCH ×2 (04:20→13:04)
--- NOTE | 2019-07-19 07:14 | NUR ---
Shift report given to oncoming nurse
[2019-07-19] MEDS: AMIODARONE HCL 200 MG TAB PO SCH (08:30)
[2019-07-19] MEDS: TAMSULOSIN HCL 0.4 MG CAP PO SCH (08:30)
[2019-07-19] MEDS: ASPIRIN 81 MG CHEW TAB PO SCH (08:30)
--- NOTE | 2019-07-19 13:33 | NUR ---
Spoke to Amandeep in microbiology and notified him that Dr. Dao wants a work up with sensitivities on the urine culture.
[2019-07-19] MEDS ORDERED: ONDANSETRON HCL 4 MG ORAL DISINTEGRATING TAB PO PRN (15:45)
[2019-07-19] MEDS ORDERED: VANCOMYCIN HCL 1 GM in SODIUM CHLORIDE 0.9% 250ML 250 ML IV SCH (19:15)
[2019-07-19] MEDS: VANCOMYCIN 1GM/NS 250 ML 250 ML IV SCH (21:40)
--- NOTE | 2019-07-19 22:03 | Progress Note ---
DATE: SUBJECTIVE: Mr. Crook is feeling better. No new complaints. He said he had some chills earlier today, but no new problems. PHYSICAL EXAMINATION: GENERAL: He is currently alert, oriented, does not seem in acute distress. VITAL SIGNS: Stable, afebrile. Temperature 98.1, heart rate 71, respiration 18. HEENT: Not icteric. NECK: Supple. CHEST: Clear bilateral. HEART: S1, S2. No S3, S4, or murmur. ABDOMEN: Soft. Possible tenderness. EXTREMITIES: No edema. SKIN: There is no rash. LABORATORY DATA: His white count came down from 21 to 14.9, hemoglobin of 10.8. Sodium 136, potassium 4, creatinine 0.83. His urine is showing coagulase negative staph. IMPRESSION: Urinary tract infection, present on admission. I would recommend to discontinue meropenem. We will put him on vancomycin. Recheck CBC. Recheck Chem panel. Follow vancomycin trough. We will use vancomycin 1 g q.12. Further recommendations to follow. Other medical problems seems to be stable. History of congestive heart failure, history of cancer. We will follow. MD LUNA Walker/ODILIA /[id number]
[2019-07-20] VITALS (9 sets, daily range): BP systolic 112–134; BP diastolic 61–78
[2019-07-20 05:04] LABS: BASOPHILS % 0.2 % (0.0-1.0); EOSINOPHILS % 0.1 % (0.0-6.0); HEMATOCRIT 35.3 % (38.2-49.6); HEMOGLOBIN 10.7 g/dL (14.0-18.0); LYMPHOCYTES # (AUTO) 1.4 (1.0-3.2); LYMPHOCYTES % 8.8 % (18.0-39.1); MEAN CORPUSCULAR HEMOGLOBIN 27.2 pg (28-32); MEAN CORPUSCULAR HGB CONC 30.3 g/dL (31-35); MEAN CORPUSCULAR VOLUME 89.6 fL (81-99); MONOCYTES # (AUTO) 1.3 (0.2-0.8); NEUTROPHILS # (AUTO) 12.9 (2.1-6.9); NEUTROPHILS % 82.3 % (38.7-80.0); PLATELET COUNT 252 x10e3/uL (140-360); RED BLOOD COUNT 3.94 x10e6/uL (4.3-5.7); RED CELL DISTRIBUTION WIDTH 15.1 % (11.7-14.4)
[2019-07-20 05:20] LABS: ALANINE AMINOTRANSFERASE 26 IU/L (0-55); ALBUMIN 2.2 g/dL (3.5-5.0); ALBUMIN/GLOBULIN RATIO 0.7 (0.8-2.0); ALKALINE PHOSPHATASE 368 IU/L (40-150); ANION GAP 13.4 mmol/L (8-16); BLOOD UREA NITROGEN 14 mg/dL (7-26); BUN/CREATININE RATIO 19 (6-25); CALCIUM 8.8 mg/dL (8.4-10.2); CARBON DIOXIDE 30 mmol/L (22-29); CHLORIDE 92 mmol/L (98-107); CREATININE, SERUM 0.72 mg/dL (0.72-1.25); EST GLOMERULAR FILTRATION RATE > 60 ML/MIN (60-); GLUCOSE 82 mg/dL (74-118); MAGNESIUM 1.9 MG/DL (1.3-2.1); POTASSIUM 4.4 mmol/L (3.5-5.1); SODIUM 131 mmol/L (136-145)
[2019-07-20] MEDS ORDERED: ZOLPIDEM TARTRATE 10 MG TAB PO PRN (05:30)
--- NOTE | 2019-07-20 07:11 | NUR ---
Patient resting comfortably. Shift report given to oncoming nurse.
[2019-07-20] MEDS: VANCOMYCIN 1GM/NS 250 ML 250 ML IV SCH ×2 (08:50→20:00)
[2019-07-20] MEDS: TAMSULOSIN HCL 0.4 MG CAP PO SCH (08:50)
[2019-07-20] MEDS: ASPIRIN 81 MG CHEW TAB PO SCH (08:50)
[2019-07-20] MEDS: AMIODARONE HCL 200 MG TAB PO SCH (08:50)
--- NOTE | 2019-07-20 11:30 | NUR ---
Spoke to JERALD Lofton regarding outpatient abx. States pt isn't going anywhere today since he's still having chills. He ordered renal US.
--- NOTE | 2019-07-20 14:05 | Diagnostic Imaging Report ---
EXAM: Renal Ultrasound INDICATION: ^chills with uti ^[id number] ^[id number] COMPARISON: None TECHNIQUE: Transverse and longitudinal images of the kidneys and bladder were obtained. FINDINGS: Right Kidney: Length: 10.9 cm Appearance: Normal echogenicity. Collecting system: No hydronephrosis Stones: None Cyst/Mass: None Left Kidney: Length: 12.1 cm Appearance: Normal echogenicity. Collecting system: No hydronephrosis Stones: None Cyst/Mass: Lower pole exophytic mass measuring 4.3 x 3.8 x 4.6 cm with internal vascularity. Bladder: Hennessy catheter in the bladder. The bladder wall appears thickened, likely due to a combination of underdistention and chronic indwelling Hennessy. IMPRESSION: Exophytic mass arising from the lower pole of the left kidney measures 4.3 x 3.8 x 4.6 m and is concerning for renal malignancy. No hydronephrosis or renal calculi. Signed by: Neftaly Baires MD on 07/20/2019 2:01 PM
--- NOTE | 2019-07-20 19:28 | NUR ---
Patient received sitting up in bed. AAO x 3. No acute distress noted. Patient assisted to the bathroom and safely transferred back to bed. Safety measures maintained. Call light within reach.
[2019-07-21] VITALS (7 sets, daily range): BP systolic 110–146; BP diastolic 59–76
[2019-07-21] MEDS: AMIODARONE HCL 200 MG TAB PO SCH (08:37)
[2019-07-21] MEDS: ASPIRIN 81 MG CHEW TAB PO SCH (08:37)
[2019-07-21] MEDS: TAMSULOSIN HCL 0.4 MG CAP PO SCH (08:37)
[2019-07-21] MEDS: VANCOMYCIN 1GM/NS 250 ML 250 ML IV SCH (08:47)
--- NOTE | 2019-07-21 14:19 | Progress Note ---
DATE: SUBJECTIVE: The patient did well overnight, no new complaints. OBJECTIVE: VITAL SIGNS: Stable, afebrile. GENERAL: No apparent distress. CARDIOVASCULAR: Regular rate and rhythm. LUNGS: Clear to auscultation bilaterally. ABDOMEN: Good bowel sounds, soft, nontender. EXTREMITIES: No clubbing or cyanosis. NEUROLOGIC: Nonfocal. ASSESSMENT AND PLAN: 1. Urinary tract infection. Continue with antibiotic care per Urology. 2. Urinary retention. Continue with Hennessy catheter per Urology. 3. Hypertension. Continue to monitor. 4. History of lung cancer. Continue to monitor. Please see hospital chart for full details. MD FELECIA Mccurdy/ODILIA /[id number]
--- NOTE | 2019-07-21 15:32 | NUR ---
Nutrition Intervention Note RD Recommendation(s) for Physician: -Continue current diet per MD. -Recommend Ensure Enlive BID. -Recommend bowel management per MD, pt reports constipation. -The patient meets criteria for MILD protein-calorie malnutrition. Plan of Care: RD following, monitoring for tolerance and adequacy. Ensure Enlive BID. Nutrition reason for involvement: MST-2 RD Assessment 07/21: 64 YOM admitted for indwelling catheter present on admission with PMH listed below. The pt reported he has had a poor appetite for about 2 weeks and that his weight fluctuates d/t his cancer .The pt reported his UBW was around 160-170 lbs, he reported he feels his weight loss started in Oct, this suggests a 6.2% weight loss within almost nine months. Offered ONS, pt declined. Encouraged intake as tolerated. The pt also reported he has not had a BM in several days. Pt denied chewing or swallowing issues as well as any food allergies. Pt had no other questions or concerns. Will continue to monitor. Principal Problems/Diagnoses: for indwelling catheter present on admission PMH: history of congestive heart failure, cancer, recurrent UTI, left kidney cancer with apparently lung metastases, coronary artery disease, and history of CABG. GI: LBM: not recorded, Abd: soft; non tender Skin: intact Labs: 07/21:no new labs Meds: Abx, cordarone, aspirin, flomax, zofran Ht:70 in Wt:150 lbs BMI:21.5 kg/m^2 IBW: 166 lbs Malnutrition Evaluation (07/21) The patient meets criteria for MILD protein-calorie malnutrition. Energy intake: <75% of estimated energy requirements for >7 days Weight loss: - Pt had a 6.2% weight loss within almost nine months. Fat loss: mild -orbital Muscle loss: Mild -temporal, clavicle utrition Prescription (Diet Order): cardiac Estimated Nutritional Needs: Calories: 6190-9111(25-35 kcal/kg/day) Weight used : CBW Protein : 68-102(1-1.5 gram/kg/day ) Weight used: CBW Diet Adequacy: Not meeting calorie needs, Not meeting protein needs Diet Education Needs Assessment: Diet education not indicated. Nutrition Care Level: mod Nutrition Diagnosis: mild protein calorie malnutrition related to medical condition as evidenced by the pt reported poor appetite and having a 6% weight loss within 9 months. Goal: Patient will meet 75-100% of estimated needs by follow up Progress: N/A Interventions: -fat, cholesterol, mineral (sodium,)-modified diet, Commercial beverage, Monitoring/Evaluation: -Total energy intake, Total protein intake, Modified diet, Liquid supplement, Weight change, Signed: Ramonita Patel RD, LD
--- NOTE | 2019-07-21 21:39 | NUR ---
Patient d/c with all belongings with son via private auto. No complaints.
== END 2019-07-21 19:43 | disposition home or self-care (01) | DRG 698 ==
LOC: ER 15:10 → ERHOLD 19:48 → MED/SURG2 21:33
PROVIDERS: ADMIT Internal Medicine; ATTEND Internal Medicine
DX: T83.511A Infection and inflammatory reaction due to indwelling urethral catheter, initial encounter (principal); A41.9 Sepsis, unspecified organism; E87.1 Hypo-osmolality and hyponatremia; N39.0 Urinary tract infection, site not specified; R33.9 Retention of urine, unspecified; I25.10 Atherosclerotic heart disease of native coronary artery without angina pectoris; Z85.118 Personal history of other malignant neoplasm of bronchus and lung; Z95.5 Presence of coronary angioplasty implant and graft; Z95.1 Presence of aortocoronary bypass graft; D64.9 Anemia, unspecified; Z85.528 Personal history of other malignant neoplasm of kidney; E87.8 Other disorders of electrolyte and fluid balance, not elsewhere classified
CPT/HCPCS: 36415; 51700; 71045; 76770; 80053; 81001; 83735; 85025; 87086; 87186; 99284; J0696; J3370; J7050